=== PATIENT | male | born 1990 | race Two or more races ===

== ENCOUNTER 2022-07-25 11:31 | Inpatient (IN) ==
--- NOTE | 2022-07-25 12:15 | Emergency Department Note ---
Impression & Plan Altered mental status, Hypokalemia, Rhabdomyolysis, Abnormal LFTs ED Provider Note NAME: YADIRA [id number] DIANA AGE: 31 SEX: M : 1990 ARRIVES VIA: Ambulance INFORMANT: Patient, ED PROVIDER(S): Ankit Dang DO CHIEF COMPLAINT: Altered mental status HPI: The patient is a 31-year-old male who presented to the emergency department for an evaluation of altered mental status. The patient is currently at [facility]. Reportedly the patient has been there since Thursday. On his initial intake he was found to be somewhat combative and altered. For this reason the patient was placed in the [facility] section. He was sent to the emergency department today because they feel his sensorium has not improved. There is concern he may be having alcohol withdrawal. The patient himself admits to drinking alcohol approximately 3 times a week. He denies having any drug use. He denies having any trauma. He denies having any chest pain or difficulty breathing. The patient denies having any recent fevers or illnesses. The patient is originally from [place]. ROS: See above HPI for pertinent positives & negatives. A total of 10 systems reviewed and were otherwise negative. PAST MEDICAL HISTORY: See Below PAST SURGICAL HISTORY: See Below FAMILY HISTORY: See Below SOCIAL HISTORY: See Below HOME MEDICATIONS: See Below ALLERGIES: See Below VITALS: See Below PHYSICAL EXAMINATION: GENERAL: Patient is awake alert in no acute distress patient is resting comfortably and showing no signs of anxiety EYES: The conjunctivae are clear. The pupils are round and reactive. EARS, NOSE, MOUTH AND THROAT: The nose is without any evidence of any deformity. Mucous membranes are moist. Tongue is midline. NECK: The neck is nontender and supple. RESPIRATORY: Normal respiratory effort is noted there is no evidence of wheezing rhonchi or rales CARDIOVASCULAR: Regular rate and rhythm noted there no murmurs rubs or gallops normal S1 normal S2. GASTROINTESTINAL: The abdomen is soft. Abdomen is nontender. MUSCULOSKELETAL/EXTREMITIES: There is no evidence of gross deformity full range of motion is noted in the hips and shoulders. SKIN: There is no obvious evidence of any rash. There are no petechiae, pallor or cyanosis noted. NEUROLOGIC: Patient is awake alert and oriented x3 strength is symmetric patellar reflexes are 2+ bilaterally MEDICAL DECISION MAKING: The patient is a 31-year-old male who presented to the emergency department from [facility]. He is currently incarcerated there. The patient was received there only 2 days ago. The patient is originally from [place]. The patient was admitting to alcohol use a few days ago. He did have a slight elevation in his blood pressure as well as tachycardia. It was possible he was having some signs of withdrawal. For this reason further laboratory and radiographic studies were obtained. I discussed the patient's laboratory and radiographic studies with him. The patient was treated with IV fluids as well as Ativan. Blood pressure did improve. I discussed the patient's [facility] Nursing notes reviewed. Prior medical records reviewed Vital Signs: reviewed and remarkable for tachycardia. Differential diagnosis: Infection, hypoglycemia, electrolyte abnormalities, overdose, toxicologic, cardiac sources, intracerebral event, neurologic, trauma, as well as other pathologies. ER treatment provided: See below Diagnostics interpreted by me: ECG: EKG was obtained in the emergency department. My interpretation is sinus tachycardia at 107 bpm. There is no ectopy. There is no acute ST segment abnormalities noted. No previous tracing was available. Cardiac Monitoring: An order was placed for continuous cardiac monitoring. The monitor shows a rate of 106 bpm with sinus tachycardia. Laboratory studies: As stated above and show below. Imaging studies: See below. Radiographic imaging was reviewed by myself Consultation(s): I discussed this case with Suzanne who is [facility] Past Med/Surg History Social History Smoking Status: Current every day smoker Tobacco Type: Cigarettes Hx Alcohol Use: Yes Preferred Language: Macedonian Feels Safe at Home: Yes Allergies Allergies Allergy/AdvReac Type Severity Reaction Status Date / Time No Known Allergies Allergy Unverified 07/25/22 15:03 Results & Data (ED) Vital Signs Vital Signs - 24 hr 07/25/22 11:37 07/25/22 11:36 07/25/22 12:33 Temperature 37.7 C H Temperature Source Oral Pulse Rate 107 H 110 H Pulse Rate [Right Apical] Pulse Rhythm Regular Pulse Strength Normal Respiratory Rate 18 Respiratory Effort / Characteristics Non-Labored Respiratory Depth Normal Respiratory Pattern Blood Pressure 150/95 H Blood Pressure [Right Arm] Blood Pressure Mean 113 Blood Pressure Mean [Right Arm] Pulse Oximetry 100 100 Oxygen Delivery Method Room Air Room Air Sepsis Recent Fever Within 48 Hours No Sepsis New/Unexplained Change in Mental Status No Sepsis Action Taken by Nursing No Action Required 07/25/22 15:09 Temperature Temperature Source Pulse Rate Pulse Rate [Right Apical] 106 H Pulse Rhythm Pulse Strength Respiratory Rate 18 Respiratory Effort / Characteristics Non-Labored Spontaneous Respiratory Depth Normal Respiratory Pattern Regular Blood Pressure Blood Pressure [Right Arm] 105/82 Blood Pressure Mean Blood Pressure Mean [Right Arm] 89 Pulse Oximetry 99 Oxygen Delivery Method Room Air Sepsis Recent Fever Within 48 Hours Sepsis New/Unexplained Change in Mental Status Sepsis Action Taken by [facility] Medications Current Medication List: was personally reviewed by me Laboratory Data Attestation: I reviewed the patient's lab results. 07/25/22 11:30 07/25/22 11:30 Lab Results 07/25/22 07/25/22 07/25/22 Range/Units 11:30 11:30 12:15 WBC 9.45 (4.8-10.8) K/ul RBC 4.08 L (4.70-6.10) M/uL Hgb 13.3 L (14.0-18.0) g/dl Hct 38.5 L (42.0-52.0) % MCV 94.4 (80.0-100.0) fL MCH 32.6 (25.0-34.0) pg MCHC 34.5 (32.0-36.0) g/dL RDW Std Deviation 43.4 (36.4-46.3) fL RDW Coeff of Natalia 12.5 (11.5-14.5) % Plt Count 204 (130-400) K/uL MPV 11.4 (9.4-12.4) fL Immature Gran % (Auto) 0.3 % Neut % (Auto) 74.0 % Lymph % (Auto) 13.9 % [place] % (Auto) 11.1 % Eos % (Auto) 0.5 % Baso % (Auto) 0.2 % Neut # (Auto) 6.99 H (1.40-6.50) K/uL Lymph # (Auto) 1.31 (1.2-3.4) K/uL [place] # (Auto) 1.05 H (0.11-0.59) K/uL Eos # (Auto) 0.05 (0-0.50) K/uL Baso # (Auto) 0.02 (0-0.2) K/uL Immature Gran # (Auto) 0.03 (0.01-0.20) K/uL Sodium 138 (136-145) mmol/L Potassium 3.1 L (3.5-5.1) mmol/L Chloride 99 (98-107) mmol/L Carbon Dioxide 23 (21-32) mmol/L Anion Gap 16 H (3-11) BUN 15 (6-23) mg/dl Creatinine 0.86 (0.6-1.4) mg/dl Est Cr Clr Drug Dosing 127.0 ml/min Est GFR ( Amer) 133.0 ml/min Est GFR (Non-Af Amer) 114.7 ml/min BUN/Creatinine Ratio 17.4 (10-20) Glucose 84 (70-99(Fasting)) mg/dl Calcium 9.9 (8.6-10.3) mg/dl Magnesium 2.0 (1.7-2.4) mg/dl Total Bilirubin 1.7 H (0.2-1.0) mg/dl AST 118 H (13-39) U/L ALT 163 H (7-52) U/L Alkaline Phosphatase 73 (34-104) U/L Total Creatine Kinase 2973 H (30-223) U/L Troponin I High Sens 8.4 (0-20) pg/ml Total Protein 8.1 (6.0-8.3) gm/dl Albumin 5.1 H (3.4-5.0) gm/dl Globulin 3.0 (2.5-4.0) gm/dl Albumin/Globulin Ratio 1.7 (0.9-2) Lipase 16 (11-82) U/L Urine Color Urine Appearance (Clear) Urine pH (4.5-7.5) Ur Specific [place] (1.000-1.030) Urine Protein (Negative) Urine Glucose (UA) (Negative) Urine Ketones (Negative) Urine Blood (Negative) Urine Nitrite (Negative) Urine Bilirubin (Negative) Urine Urobilinogen (Negative) Ur Leukocyte Esterase (Negative) Urine WBC (Auto) (0-5) /hpf Urine RBC (Auto) (0-4) /hpf U Hyaline Cast (Auto) (0-5) /lpf U Epithel Cells (Auto) (0-5) /lpf Urine Bacteria (Auto) (Negative) Urine Mucus (None Prsent) Salicylates (3.0-30) mg/dl Urine Opiates Screen (Neg) Ur Methadone, Qual (Neg) Acetaminophen (10-30) ug/ml Urine Barbiturates (Neg) Ur Phencyclidine (PCP) (Neg) U Amphetamin/Meth Scrn (Neg) MDMA (Ecstasy) Screen (Neg) U Benzodiazepines Scrn (Neg) Ur Cocaine Metabolite (Neg) U Marijuana (THC) Screen (Neg) Ethyl Alcohol mg/dL < 10.0 (<10.0) mg/dl SARS-CoV-2, RNA, NAAT (NEGATIVE) 07/25/22 07/25/22 07/25/22 Range/Units 13:10 13:16 13:16 WBC (4.8-10.8) K/ul RBC (4.70-6.10) M/uL Hgb (14.0-18.0) g/dl Hct (42.0-52.0) % MCV (80.0-100.0) fL MCH (25.0-34.0) pg MCHC (32.0-36.0) g/dL RDW Std Deviation (36.4-46.3) fL RDW Coeff of Natalia (11.5-14.5) % Plt Count (130-400) K/uL MPV (9.4-12.4) fL Immature Gran % (Auto) % Neut % (Auto) % Lymph % (Auto) % [place] % (Auto) % Eos % (Auto) % Baso % (Auto) % Neut # (Auto) (1.40-6.50) K/uL Lymph # (Auto) (1.2-3.4) K/uL [place] # (Auto) (0.11-0.59) K/uL Eos # (Auto) (0-0.50) K/uL Baso # (Auto) (0-0.2) K/uL Immature Gran # (Auto) (0.01-0.20) K/uL Sodium (136-145) mmol/L Potassium (3.5-5.1) mmol/L Chloride (98-107) mmol/L Carbon Dioxide (21-32) mmol/L Anion Gap (3-11) BUN (6-23) mg/dl Creatinine (0.6-1.4) mg/dl Est Cr Clr Drug Dosing ml/min Est GFR ( Amer) ml/min Est GFR (Non-Af Amer) ml/min BUN/Creatinine Ratio (10-20) Glucose (70-99(Fasting)) mg/dl Calcium (8.6-10.3) mg/dl Magnesium (1.7-2.4) mg/dl Total Bilirubin (0.2-1.0) mg/dl AST (13-39) U/L ALT (7-52) U/L Alkaline Phosphatase (34-104) U/L Total Creatine Kinase (30-223) U/L Troponin I High Sens (0-20) pg/ml Total Protein (6.0-8.3) gm/dl Albumin (3.4-5.0) gm/dl Globulin (2.5-4.0) gm/dl Albumin/Globulin Ratio (0.9-2) Lipase (11-82) U/L Urine Color Dark Yellow Urine Appearance Clear (Clear) Urine pH 5.5 (4.5-7.5) Ur Specific [place] 1.027 (1.000-1.030) Urine Protein Trace H (Negative) Urine Glucose (UA) Negative (Negative) Urine Ketones 2+ H (Negative) Urine Blood Negative (Negative) Urine Nitrite Negative (Negative) Urine Bilirubin 1+ H (Negative) Urine Urobilinogen Negative (Negative) Ur Leukocyte Esterase Negative (Negative) Urine WBC (Auto) 1-5 (0-5) /hpf Urine RBC (Auto) 0-4 (0-4) /hpf U Hyaline Cast (Auto) 5-10 H (0-5) /lpf U Epithel Cells (Auto) 10-20 H (0-5) /lpf Urine Bacteria (Auto) Negative (Negative) Urine Mucus Present A (None Prsent) Salicylates < 3.0 L (3.0-30) mg/dl Urine Opiates Screen Neg (Neg) Ur Methadone, Qual Neg (Neg) Acetaminophen < 3 L (10-30) ug/ml Urine Barbiturates Neg (Neg) Ur Phencyclidine (PCP) Neg (Neg) U Amphetamin/Meth Scrn Neg (Neg) MDMA (Ecstasy) Screen Neg (Neg) U Benzodiazepines Scrn Neg (Neg) Ur Cocaine Metabolite Neg (Neg) U Marijuana (THC) Screen Pos H (Neg) Ethyl Alcohol mg/dL (<10.0) mg/dl SARS-CoV-2, RNA, NAAT (NEGATIVE) 07/25/22 Range/Units 15:04 WBC (4.8-10.8) K/ul RBC (4.70-6.10) M/uL Hgb (14.0-18.0) g/dl Hct (42.0-52.0) % MCV (80.0-100.0) fL MCH (25.0-34.0) pg MCHC (32.0-36.0) g/dL RDW Std Deviation (36.4-46.3) fL RDW Coeff of Natalia (11.5-14.5) % Plt Count (130-400) K/uL MPV (9.4-12.4) fL Immature Gran % (Auto) % Neut % (Auto) % Lymph % (Auto) % [place] % (Auto) % Eos % (Auto) % Baso % (Auto) % Neut # (Auto) (1.40-6.50) K/uL Lymph # (Auto) (1.2-3.4) K/uL [place] # (Auto) (0.11-0.59) K/uL Eos # (Auto) (0-0.50) K/uL Baso # (Auto) (0-0.2) K/uL Immature Gran # (Auto) (0.01-0.20) K/uL Sodium (136-145) mmol/L Potassium (3.5-5.1) mmol/L Chloride (98-107) mmol/L Carbon Dioxide (21-32) mmol/L Anion Gap (3-11) BUN (6-23) mg/dl Creatinine (0.6-1.4) mg/dl Est Cr Clr Drug Dosing ml/min Est GFR ( Amer) ml/min Est GFR (Non-Af Amer) ml/min BUN/Creatinine Ratio (10-20) Glucose (70-99(Fasting)) mg/dl Calcium (8.6-10.3) mg/dl Magnesium (1.7-2.4) mg/dl Total Bilirubin (0.2-1.0) mg/dl AST (13-39) U/L ALT (7-52) U/L Alkaline Phosphatase (34-104) U/L Total Creatine Kinase (30-223) U/L Troponin I High Sens (0-20) pg/ml Total Protein (6.0-8.3) gm/dl Albumin (3.4-5.0) gm/dl Globulin (2.5-4.0) gm/dl Albumin/Globulin Ratio (0.9-2) Lipase (11-82) U/L Urine Color Urine Appearance (Clear) Urine pH (4.5-7.5) Ur Specific [place] (1.000-1.030) Urine Protein (Negative) Urine Glucose (UA) (Negative) Urine Ketones (Negative) Urine Blood (Negative) Urine Nitrite (Negative) Urine Bilirubin (Negative) Urine Urobilinogen (Negative) Ur Leukocyte Esterase (Negative) Urine WBC (Auto) (0-5) /hpf Urine RBC (Auto) (0-4) /hpf U Hyaline Cast (Auto) (0-5) /lpf U Epithel Cells (Auto) (0-5) /lpf Urine Bacteria (Auto) (Negative) Urine Mucus (None Prsent) Salicylates (3.0-30) mg/dl Urine Opiates Screen (Neg) Ur Methadone, Qual (Neg) Acetaminophen (10-30) ug/ml Urine Barbiturates (Neg) Ur Phencyclidine (PCP) (Neg) U Amphetamin/Meth Scrn (Neg) MDMA (Ecstasy) Screen (Neg) U Benzodiazepines Scrn (Neg) Ur Cocaine Metabolite (Neg) U Marijuana (THC) Screen (Neg) Ethyl Alcohol mg/dL (<10.0) mg/dl SARS-CoV-2, RNA, NAAT NEGATIVE (NEGATIVE) Administered Medications Discontinued Medications Sodium Chloride (Nss 1000ml) 1,000 mls @ 999 mls/hr IV .[id number] ONE Stop: 07/25/22 14:49 Last Infusion: 07/25/22 16:02 Dose: 0 mls/hr Documented By: Admin: 07/25/22 14:47 Dose: 999 mls/hr Documented By: RANDY Lorazepam (Lorazepam 2 Mg/1 Ml Vial) 1 mg IV NOW STA Stop: 07/25/22 13:50 Last Admin: 07/25/22 14:05 Dose: 1 mg Documented By: RANDY Potassium Chloride (Potassium Chloride Crtab 20 Meq Tabcr) 20 meq PO NOW STA Stop: 07/25/22 13:52 Last Admin: 07/25/22 14:04 Dose: 20 meq Documented By: RANDY Thiamine HCl (Thiamine Hcl 100 Mg/Ml 2 Ml Vial) 100 mg IM NOW STA Stop: 07/25/22 13:56 Last Admin: 07/25/22 14:05 Dose: 100 mg Documented By: RANDY Imaging Data Attestation: I personally reviewed and interpreted this imaging study as follows: My Impression: 1 view chest x-ray was obtained in the emergency department. My interpretation is no free air, no definite infiltrate, final report below. Radiologist's Impression: Chest X-Ray 07/25/22 12:08 SINGLE VIEW CHEST CLINICAL HISTORY: Change in mental status. FINDINGS: An AP, portable, upright chest radiograph is obtained. No prior studies are available for comparison at the time of dictation. The cardiomediastinal silhouette is unremarkable. The lungs and pleural spaces are clear. No pneumothorax is seen. The bony thorax is grossly intact. IMPRESSION: No active disease in the chest. ACT 112: Negative or not required by law. Electronically signed by: Prince Her M.D. 07/25/2022 1:[address] 07/25/22 12:08 CT SCAN OF THE BRAIN WITHOUT IV CONTRAST CLINICAL HISTORY: Change in mental status COMPARISON STUDY: No priors. TECHNIQUE: Unenhanced axial CT scan of the brain is performed from the vertex to the skull base. A dose lowering technique was utilized adhering to the principles of ALARA. CT DOSE: 614.27 mGy.cm FINDINGS: Brain parenchyma: The brain parenchyma is normal in appearance. There is no he morrhage, mass effect, or evidence of acute territorial ischemia by CT criteria. Arriaza-white matter differentiation is preserved. No extra-axial fluid collection is seen. Ventricles, sulci, cisterns: Normal in configuration. Intracranial vasculature: The visualized intracranial vasculature at the skull base is normal in appearance. Calvarium: Unremarkable. Sinuses and mastoids: The visualized paranasal sinuses are clear. The mastoid air cells are well pneumatized. Orbits: The bony orbits are grossly intact. IMPRESSION: No acute intracranial abnormality. ACT 112: Negative or not required by law. Electronically signed by: Prince Her M.D. 07/25/2022 12:52 PM Discharge Plan Visit Data Chief Complaint: Altered Mental Status Stated Complaint: AMS, POSSIBLE ALCOHOL WITHDRAWL ED Provider: Ankit Dang Discharge Problem: Altered mental status, Hypokalemia, Rhabdomyolysis, Abnormal LFTs Patient Disposition: Being Evaluated by Hospitalist Forms Stand Alone Forms: [facility] Referrals Referrals: PCP,NO [Physician] - Altered mental status Qualifiers: Altered mental status type: unspecified Qualified Code(s): R41.82 - Altered mental status, unspecified Rhabdomyolysis Qualifiers: Rhabdomyolysis type: non-traumatic Qualified Code(s): M62.82 - Rhabdomyolysis
[2022-07-25 12:39] LABS: Basophils # (auto) 0.02 K/uL (0-0.2); Basophils % (auto) 0.2 %; Eosinophils # (auto) 0.05 K/uL (0-0.50); Eosinophils % (auto) 0.5 %; Hematocrit (blood only) 38.5 % (42.0-52.0); Hemoglobin 13.3 g/dl (14.0-18.0); Immature Granulocytes # (auto) 0.03 K/uL (0.01-0.20); Immature Granulocytes % (auto) 0.3 %; Lymphocytes # (auto) 1.31 K/uL (1.2-3.4); Lymphocytes % (auto) 13.9 %; Mean Corpuscular Hemoglobin 32.6 pg (25.0-34.0); Mean Corpuscular Hgb Conc 34.5 g/dL (32.0-36.0); Mean Corpuscular Volume 94.4 fL (80.0-100.0); Mean Platelet Volume 11.4 fL (9.4-12.4); Monocytes # (auto) 1.05 K/uL (0.11-0.59); Monocytes % (auto) 11.1 %; Neutrophils # (auto) 6.99 K/uL (1.40-6.50); Platelet Count 204 K/uL (130-400); RDW Coefficient of Variation 12.5 % (11.5-14.5); RDW Standard Deviation 43.4 fL (36.4-46.3); Red Blood Count 4.08 M/uL (4.70-6.10); White Blood Count 9.45 K/ul (4.8-10.8)
[2022-07-25 12:49] LABS: BUN Creatinine Ratio 17.4 (10-20); Calcium 9.9 mg/dl (8.6-10.3); Est GFR (Non-African American) 114.7 ml/min; Potassium 3.1 mmol/L (3.5-5.1)
[2022-07-25 12:54] LABS: Troponin I High Sensitivity 8.4 pg/ml (0-20)
--- NOTE | 2022-07-25 12:54 | CT Scan Report ---
CT SCAN OF THE BRAIN WITHOUT IV CONTRAST CLINICAL HISTORY: Change in mental status COMPARISON STUDY: No priors. TECHNIQUE: Unenhanced axial CT scan of the brain is performed from the vertex to the skull base. A d ose lowering technique was utilized adhering to the principles of ALARA. CT DOSE: 614.27 mGy.cm FINDINGS: Brain parenchyma: The brain parenchyma is normal in appearance. There is no hemorrhage, mass effect, or evidence of acute territorial ischemia by CT criteria. Arriaza-white matter differentiation is preser johnson. No extra-axial fluid collection is seen. Ventricles, sulci, cisterns: Normal in configuration. Intracranial vasculature: The visualized intracranial vasculature at the skull base is normal in appe arance. Calvarium: Unremarkable. Sinuses and mastoids: The visualized paranasal sinuses are clear. The mastoid air cells are well pneu matized. Orbits: The bony orbits are grossly intact. IMPRESSION: No acute intracranial abnormality. ACT 112: Negative or not required by law. Electronically signed by: Prince Her M.D. 07/25/2022 12:52 PM
--- NOTE | 2022-07-25 13:01 | XRay Report ---
SINGLE VIEW CHEST CLINICAL HISTORY: Change in mental status. FINDINGS: An AP, portable, upright chest radiograph is obtained. No prior studies are available for c omparison at the time of dictation. The cardiomediastinal silhouette is unremarkable. The lungs and p leural spaces are clear. No pneumothorax is seen. The bony thorax is grossly intact. IMPRESSION: No active disease in the chest. ACT 112: Negative or not required by law. Electronically signed by: Prince Her M.D. 07/25/2022 1:00 PM
[2022-07-25 13:21] LABS: Albumin Globulin Ratio 1.7 (0.9-2); Albumin Level 5.1 gm/dl (3.4-5.0); Bilirubin,Total 1.7 mg/dl (0.2-1.0); Total Protein 8.1 gm/dl (6.0-8.3)
[2022-07-25 13:40] LABS: Appearance Urine Clear (Clear); Bacteria Urine Automated Negative (Negative); Blood Urine Negative (Negative); Color Urine Dark Yellow; Glucose Urine UA Negative (Negative); Ketones Urine 2+ (Negative); Leukocyte Esterase Urine Negative (Negative); Nitrite Urine Negative (Negative); Protein Urine Trace (Negative); RBC Urine Automated 0-4 /hpf (0-4); Specific Gravity Urine 1.027 (1.000-1.030); Urobilinogen Urine Negative (Negative); pH Urine 5.5 (4.5-7.5)
[2022-07-25] MEDS ORDERED: SODIUM CHLORIDE 0.9% 1000ML 1,000 ML IV ONE (13:49)
[2022-07-25] MEDS ORDERED: LORazepam 2 MG/1 ML VIAL IV STA ×2 (13:49→16:42)
[2022-07-25] MEDS ORDERED: POTASSIUM CHLORIDE CRTAB 20 MEQ TABCR PO STA (13:51)
[2022-07-25 13:52] LABS: Bilirubin Urine 1+ (Negative)
[2022-07-25 13:55] LABS: Acetaminophen < 3 ug/ml (10-30); Salicylate < 3.0 mg/dl (3.0-30)
[2022-07-25] MEDS ORDERED: THIAMINE HCL 100 MG/ML 2 ML VIAL IM STA (13:55)
--- NOTE | 2022-07-25 14:05 | Electrocardiogram Report ---
Test Reason : Blood Pressure : / mmHG Vent. Rate : 107 BPM Atrial Rate : 107 BPM P-R Int : 116 ms QRS Dur : 104 ms QT Int : 366 ms P-R-T Axes : 046 052 050 degrees QTc Int : 488 ms Poor data quality, interpretation may be adversely affected Sinus tachycardia Otherwise normal ECG No previous ECGs available Confirmed by Ankit Weldon ([id number]) on 07/25/2022 2:05:12 PM Referred By: Confirmed By:Ankit Weldon
[2022-07-25 14:09] LABS: Mucus Urine Present (None Prsent)
[2022-07-25 14:37] LABS: Amphetamines+Metham, Urine Neg (Neg); Barbiturates, Urine Neg (Neg); Benzodiazepine, Urine Neg (Neg); Cocaine, Urine Neg (Neg); MDMA (Ecstacy), Urine Neg (Neg); Methadone, Urine Neg (Neg); Opiate, Urine Neg (Neg); Phencyclidine, Urine Neg (Neg)
--- NOTE | 2022-07-25 14:49 | History & Physical Report ---
Date of Service July 25, 2022 Assessment & Plan (1) Altered mental status: Plan: Patient is 31 y/o M without known PMH presented to ER from [facility] for AMS. At [facility] for 2 days. Yesterday noted AMS, hallucinations Suspect ETOH withdrawal. DDX: underlying pysch disorder, other medication withdrawal, possible other drug use not seen on drug screen CT head: No acute intracranial abnormality CXR: No acute infiltrate EtOH:<10 Drug screen:+ Marijuana In ER given Ativan 1 mg IV, thiamine Alcohol withdrawal protocol with gabapentin, Ativan Thiamine, folic acid, multivitamin daily CBC, CMP in a.m. (2) Rhabdomyolysis: Plan: Yesterday reported to be hitting hands and head off last CK: 2973, BUN: 15, Cr: 0.8 In ER given 1 L NSS NSS CK in a.m. (3) Hypokalemia: Plan: K: 3.1. Magnesium: 2.0 In ER given 20 mEq potassium chloride Replace and monitor (4) Abnormal LFTs: Plan: T. bili: 1.7, AST: 118, ALT: 163, alk phos: 73. Lipase WNL No baseline labs to compare Denies any abdominal pain, nontender on exam Repeat CMP in a.m. DVT Prophylaxis SCDs Full Code as per discussion with pt Is currently at [facility] Pt was seen and care coordinated with Dr Chaney. See addendum I spent a total of 79 minutes reviewing notes, outpatient records, labs, medication, coordinating, documenting and providing care for this patient excluding time spent in the performance of separately billed services. History of Present Illness Chief Complaint: AMS Primary Care Provider: Jamie Hughes DO Patient is 31 y/o M without known PMH presented to ER from [facility] for AMS. Limited history obtained from patient secondary to patient's current confusion. It is reported patient arrived at [facility] 2 days ago. It is reported yesterday he had noted confusion. He was agitated and hitting his head and hands on the last. He had noted diaphoresis. Reported he was hallucinating and reporting that his mother was lying down on the floor in his cell. Seen by psych there. There was question if patient had underlying mental health history. It is reported that patient's had called facility and reported that patient drinks alcohol. It is unclear how much patient drinks or when his last ETOH intake was. There is question if last drink was 5 days ago. He was referred to ER for further evaluation today. Currently patient with confusion and history is unreliable. He has varied answers for how much he drinks and how often. He states he drinks beer. Onetime he says he drinks 4 drinks a couple times a week another time he states he drinks more often. He reports he smokes cigarettes 1.5 packs/day. Also states smokes marijuana. He reports he last used 5 days ago. Patient reports that he is currently in an apartment with his brother and is confused to place. He states year is 2022, thinks it is August 16. He states he remembers being at [facility] yesterday but "didn't feel like himself". Currently patient reports feels well after receiving medication in ER. Patient states that he does not take routine medications, again however this is unclear. No fever reported from facility. Patient doesn't think he has had any N/V/D, SOB, CP, abdominal pain, extremity edema, urinary symptoms. He is unable to tell me if he has any other further medical problems, history of surgeries or family history. Allergies Allergy/AdvReac Type Severity Reaction Status Date / Time No Known Allergies Allergy Unverified 07/25/22 15:03 Home Medications Medication Instructions Recorded Confirmed Type chlordiazepoxide HCl 5 mg capsule 5 mg PO DAILY #3 caps 07/29/22 Rx folic acid 1 mg tablet 1 mg PO QAM #30 tabs 07/29/22 Rx multivitamin with folic acid 400 1 tab PO QAM #30 tabs 07/29/22 Rx mcg tablet (Daily-Santy (with folic acid)) thiamine HCl (vitamin B1) 100 mg 200 mg PO BID 10 days #40 tabs 07/29/22 Rx tablet Past Med/Surg History Social History Smoking Status: Current every day smoker Tobacco Type: Cigarettes Hx Alcohol Use: Yes Hx Substance Use: No (UNKNOWN) Preferred Language: Kyrgyz Communication Ability: Unable Safety And Security Manager Required: No Current Living Situation: Other Feels Safe at Home: Declines to Answer Assistive Devices: None Review of Systems Review of Systems: Unobtainable due to cognitive status Physical Exam Physical Exam: General: no acute distress currently, WDWN Head: normocephalic, atraumatic Eyes: PERRL, EOM's intact, conjunctiva non-injected, anicteric ENT: normal inspection external ears, nose, mucous membranes moist Neck: supple, trachea midline Lungs: clear, no respiratory distress, no wheezing/rhonchi/rales CV: Tachycardic, rate 106, regular rhythm no murmur, no pretibial edema Abd: normal BS, soft, non-tender Ext: no cyanosis, no calf tenderness Neuro: Alert, oriented to person. Thinks he is in his apartment with his brother currently. Knows the year is 2022, incorrect month and date, no focal deficits noted, currently is calm and cooperative. No signs of current hallucinations Skin: warm, dry Results & Data Results & Data Vital Signs (Past 12 Hours) Vital Signs Temp Pulse Resp BP Pulse Ox O2 Del Method 07/25/22 12:33 110 H 07/25/22 11:36 100 Room Air 07/25/22 11:37 37.7 C H 107 H 18 150/95 H 100 Room Air Laboratory Results Short CBC 07/25/22 Range/Units 11:30 WBC 9.45 (4.8-10.8) K/ul Hgb 13.3 L (14.0-18.0) g/dl Hct 38.5 L (42.0-52.0) % Plt Count 204 (130-400) K/uL BMP 07/25/22 11:30 Sodium 138 Potassium 3.1 L Chloride 99 Carbon Dioxide 23 BUN 15 Creatinine 0.86 Glucose 84 Calcium 9.9 Cardiac Enzymes 07/25/22 Range/Units 11:30 Total Creatine Kinase 2973 H (30-223) U/L Liver Function 07/25/22 Range/Units 11:30 Total Bilirubin 1.7 H (0.2-1.0) mg/dl AST 118 H (13-39) U/L ALT 163 H (7-52) U/L Alkaline Phosphatase 73 (34-104) U/L Albumin 5.1 H (3.4-5.0) gm/dl Urine 07/25/22 Range/Units 13:16 Urine Color Dark Yellow Urine Appearance Clear (Clear) Urine pH 5.5 (4.5-7.5) Ur Specific [place] 1.027 (1.000-1.030) Urine Protein Trace H (Negative) Urine Glucose (UA) Negative (Negative) Diagnostic Findings Chest X-Ray 07/25/22 12:08 SINGLE VIEW CHEST CLINICAL HISTORY: Change in mental status. FINDINGS: An AP, portable, upright chest radiograph is obtained. No prior studies are available for comparison at the time of dictation. The cardiomediastinal silhouette is unremarkable. The lungs and pleural spaces are clear. No pneumothorax is seen. The bony thorax is grossly intact. IMPRESSION: No active disease in the chest. ACT 112: Negative or not required by law. Electronically signed by: Prince Her M.D. 07/25/2022 1:[address] 07/25/22 12:08 CT SCAN OF THE BRAIN WITHOUT IV CONTRAST CLINICAL HISTORY: Change in mental status COMPARISON STUDY: No priors. TECHNIQUE: Unenhanced axial CT scan of the brain is performed from the vertex to the skull base. A dose lowering technique was utilized adhering to the principles of ALARA. CT DOSE: 614.27 mGy.cm FINDINGS: Brain parenchyma: The brain parenchyma is normal in appearance. There is no hemorrhage, mass effect, or evidence of acute territorial ischemia by CT criteria. Arriaza-white matter differentiation is preserved. No extra-axial fluid collection is seen. Ventricles, sulci, cisterns: Normal in configuration. Intracranial vasculature: The visualized intracranial vasculature at the skull base is normal in appearance. Calvarium: Unremarkable. Sinuses and mastoids: The visualized paranasal sinuses are clear. The mastoid air cells are well pneumatized. Orbits: The bony orbits are grossly intact. IMPRESSION: No acute intracranial abnormality. ACT 112: Negative or not required by law. Electronically signed by: Prince Her M.D. 07/25/2022 12:52 PM ECG Rate (beats per minute): 107 Rhythm: sinus tachycardia Additional Comments: poor tracing Supervising Physician Co-Signing Physician Notes Pt was seen and examined. Agreed with Estee BARR exam, assessment and plan. 31 y/o M was brought from [facility] facility for AMS. I saw patient yesterday at [facility], where he was found to be confused, [facility] It was reported that patient's called the facility and reported that patient drinks alcohol. It is unclear how much patient drinks or when his last ETOH intake. Today his mental status worsening. He thought he was at his brother facility where he was having a conversation. Denies any chest pain, palpitation, dizziness and SOB. Lab on admission showed elevated liver enzymes, elevated CPK and electrolytes abnormality. CT head showed no acute intracranial abnormality. Will start on gabapentin and Ativan for alcohol protocol treatment. Will repeat LFT and K level. Consider to start librium if symptoms worsening. Continue monitor closely. MD Ritu (1) Altered mental status Altered mental status type: unspecified Qualified Code(s): R41.82 - Altered mental status, unspecified (2) Rhabdomyolysis Rhabdomyolysis type: non-traumatic Qualified Code(s): M62.82 - Rhabdomyolysis
[2022-07-25] MEDS ORDERED: GABAPENTIN 600 MG TAB PO ONE (18:09)
[2022-07-25] MEDS ORDERED: GABAPENTIN 1200MG ALCOHOL WITHDRAWAL LOAD PO STA (18:09)
[2022-07-25] MEDS ORDERED: LORazepam 2 MG/1 ML VIAL IV PRN (18:09)
[2022-07-25] MEDS ORDERED: POTASSIUM CHLORIDE CRTAB 20 MEQ TABCR PO ONE (18:09)
[2022-07-25] MEDS ORDERED: POLYETHYLENE (MIRALAX) 17 GM PACK PO PRN (18:09)
[2022-07-25] MEDS ORDERED: ONDANSETRON INJ 2 MG/ML 2 ML VIAL IV PRN (18:09)
[2022-07-25] MEDS ORDERED: Ativan IV Alcohol Withdrawal--Active Protocol IV PRN (18:09)
[2022-07-25] MEDS ORDERED: LORazepam 2 MG/1 ML VIAL ONE (18:23)
[2022-07-25] MEDS: SODIUM CHLORIDE 0.9% 1000ML 1,000 ML IV SCH (18:49)
[2022-07-25] MEDS: LORazepam 2 MG/1 ML VIAL IV PRN ×5 (19:24→23:36)
[2022-07-25] MEDS: POTASSIUM CHLORIDE / WTR 10 MEQ/100 ML PLCT IV SCH ×3 (21:17→23:06)
[2022-07-26] MEDS: POTASSIUM CHLORIDE / WTR 10 MEQ/100 ML PLCT IV SCH (00:17)
[2022-07-26] MEDS: GABAPENTIN 600 MG TAB PO SCH ×4 (00:21→19:47)
[2022-07-26] MEDS: LORazepam 2 MG/1 ML VIAL IV PRN ×8 (00:37→19:46)
[2022-07-26] MEDS: SODIUM CHLORIDE 0.9% 1000ML 1,000 ML IV SCH (01:22)
[2022-07-26 06:45] LABS: Hematocrit (blood only) 35.5 % (42.0-52.0); Hemoglobin 11.9 g/dl (14.0-18.0); Mean Corpuscular Hemoglobin 33.1 pg (25.0-34.0); Mean Corpuscular Hgb Conc 33.5 g/dL (32.0-36.0); Mean Corpuscular Volume 98.6 fL (80.0-100.0); Mean Platelet Volume 10.8 fL (9.4-12.4); Platelet Count 165 K/uL (130-400); RDW Coefficient of Variation 12.6 % (11.5-14.5); RDW Standard Deviation 45.7 fL (36.4-46.3); White Blood Count 6.04 K/ul (4.8-10.8)
[2022-07-26 07:00] LABS: Alanine Aminotransferase 106 U/L (7-52); Albumin Globulin Ratio 1.7 (0.9-2); Albumin Level 3.8 gm/dl (3.4-5.0); Alkaline Phosphatase 54 U/L (34-104); Anion Gap 8 (3-11); Aspartate Aminotransferase 67 U/L (13-39); BUN Creatinine Ratio 12.1 (10-20); Bilirubin,Total 1.2 mg/dl (0.2-1.0); Blood Urea Nitrogen 7 mg/dl (6-23); Calcium 8.2 mg/dl (8.6-10.3); Carbon Dioxide 24 mmol/L (21-32); Chloride 107 mmol/L (98-107); Creatine Kinase 1286 U/L (30-223); Est GFR (African American) > 150.0 ml/min; Est GFR (Non-African American) 134.9 ml/min; Globulin 2.3 gm/dl (2.5-4.0); Glucose 67 mg/dl (70-99(Fasting)); Potassium 3.6 mmol/L (3.5-5.1); Sodium 139 mmol/L (136-145); Total Protein 6.1 gm/dl (6.0-8.3)
--- NOTE | 2022-07-26 08:16 | Hospitalist Progress Note ---
Date of Service July 26, 2022 Assessment & Plan (1) Altered mental status: Plan: Patient is 31 y/o M without known PMH presented to ER from [facility] for AMS. At [facility] for 2 days. Noted AMS, hallucinations Suspect ETOH withdrawal. DDX: underlying pysch disorder, other medication withdrawal, possible other drug use not seen on drug screen CT head: No acute intracranial abnormality CXR: No acute infiltrate EtOH:<10 Drug screen:+ Marijuana In ER given Ativan and thiamine Alcohol withdrawal protocol with gabapentin, Ativan Thiamine, folic acid, multivitamin daily Patient was unable to take p.o. gabapentin He has been combative, in restraints, receiving multiple doses of Ativan Discussed with patient's RN, and pot room supervisor, plan to transfer to ICU for further closer monitoring and care Monitor CBC, CMP Further care per ICU (2) Rhabdomyolysis: Plan: Reported to be hitting hands and head off last CK: 2973, BUN: 15, Cr: 0.8 In ER given 1 L NSS NSS CK trended down (3) Hypokalemia: Plan: K: 3.1. Magnesium: 2.0 Replace and monitor (4) Abnormal LFTs: Plan: T. bili: 1.7, AST: 118, ALT: 163, alk phos: 73. Lipase WNL No baseline labs to compare Denies any abdominal pain, nontender on exam AST, ALT trended down Cont. to monitor CMP in a.m. DVT Prophylaxis SCDs Full Code as per discussion with pt Is currently at [facility] Admission and Anticipated Discharge Date Admission Date: July 25, 2022 Subjective Pt seen in follow up of altered mental status, etoh withdrawal, rhabdo Laying in bed, drowsy - received multiple doses of ativan, not answering appropriately He is in restraints Per RN pt has been combative , receiving ativan frequently, not able to take PO Patient is not answering questions appropriately, able to obtain full review of system Discussed with pot room supervisor, plan to transfer to ICU for closer monitoring Review of Systems Review of Systems: All systems reviewed & are unremarkable except as noted in Subjective Physical Exam 2 Physical Exam: General: WD/WN young M in no acute distress however in restraints, drowsy Head: normocephalic, atraumatic Eyes: PERRL, EOM's intact, conjunctiva non-injected, anicteric ENT: normal inspection external ears, nose, mucous membranes moist Neck: supple Lungs: clear, no respiratory distress, no wheezing/rhonchi/rales CV: regular rhythm no murmur, no pretibial edema Abd: normal BS, soft, non-tender Ext: no LE edema, moves extremities w/o difficulty Neuro: Drowsy but awake, moving all extremities, in restraints, not able to answer all questions appropriately Skin: warm, dry Results & Data Results & Data Vital Signs (Past 12 Hours) Vital Signs Temp Pulse Pulse Resp BP BP BP 07/26/22 07:38 36.5 C 77 18 123/82 07/26/22 06:27 36.5 C 79 18 135/87 07/26/22 05:29 36.5 C 91 H 18 103/60 07/26/22 04:35 36.4 C L 88 18 132/75 07/26/22 03:31 36.3 C L 102 H 20 139/76 07/26/22 02:37 36.3 C L 96 H 16 108/55 L 07/26/22 01:34 36.3 C L 103 H 18 103/58 L 07/26/22 00:43 87 07/25/22 23:33 36.5 C 80 18 127/56 L 07/26/22 00:25 36.3 C L 101 H 22 145/74 H 07/25/22 22:33 36.5 C 132 H 22 116/82 07/25/22 21:33 36.5 C 88 18 123/77 07/25/22 20:33 36.4 C L 91 H 18 124/79 Pulse Ox O2 Del Method 07/26/22 07:38 100 Room Air 07/26/22 06:27 98 Room Air 07/26/22 05:29 100 Room Air 07/26/22 04:35 100 Room Air 07/26/22 03:31 96 Room Air 07/26/22 02:37 99 Room Air 07/26/22 01:34 99 Room Air 07/26/22 00:43 07/25/22 23:33 95 Room Air 07/26/22 00:25 99 Room Air 07/25/22 22:33 94 Room Air 07/25/22 21:33 99 Room Air 07/25/22 20:33 97 Room Air Laboratory Results 07/26/22 07/26/22 07/25/22 Range/Units 06:19 06:19 Unknown WBC 6.04 (4.8-10.8) K/ul RBC 3.60 L (4.70-6.10) M/uL Hgb 11.9 L (14.0-18.0) g/dl Hct 35.5 L (42.0-52.0) % MCV 98.6 (80.0-100.0) fL MCH 33.1 (25.0-34.0) pg MCHC 33.5 (32.0-36.0) g/dL RDW Std Deviation 45.7 (36.4-46.3) fL RDW Coeff of Natalia 12.6 (11.5-14.5) % Plt Count 165 (130-400) K/uL MPV 10.8 (9.4-12.4) fL Immature Gran % (Auto) % Neut % (Auto) % Lymph % (Auto) % [place] % (Auto) % Eos % (Auto) % Baso % (Auto) % Neut # (Auto) (1.40-6.50) K/uL Lymph # (Auto) (1.2-3.4) K/uL [place] # (Auto) (0.11-0.59) K/uL Eos # (Auto) (0-0.50) K/uL Baso # (Auto) (0-0.2) K/uL Immature Gran # (Auto) (0.01-0.20) K/uL Sodium 139 (136-145) mmol/L Potassium 3.6 (3.5-5.1) mmol/L Chloride 107 (98-107) mmol/L Carbon Dioxide 24 (21-32) mmol/L Anion Gap 8 (3-11) BUN 7 (6-23) mg/dl Creatinine 0.58 L (0.6-1.4) mg/dl Est Cr Clr Drug Dosing 189.0 ml/min Est GFR ( Amer) > 150.0 ml/min Est GFR (Non-Af Amer) 134.9 ml/min BUN/Creatinine Ratio 12.1 (10-20) Glucose 67 L (70-99(Fasting)) mg/dl Calcium 8.2 L (8.6-10.3) mg/dl Magnesium (1.7-2.4) mg/dl Total Bilirubin 1.2 H (0.2-1.0) mg/dl AST 67 H (13-39) U/L ALT 106 H (7-52) U/L Alkaline Phosphatase 54 (34-104) U/L Total Creatine Kinase 1286 H (30-223) U/L Troponin I High Sens (0-20) pg/ml Total Protein 6.1 D (6.0-8.3) gm/dl Albumin 3.8 (3.4-5.0) gm/dl Globulin 2.3 L (2.5-4.0) gm/dl Albumin/Globulin Ratio 1.7 (0.9-2) Lipase (11-82) U/L Urine Color Urine Appearance (Clear) Urine pH (4.5-7.5) Ur Specific [place] (1.000-1.030) Urine Protein (Negative) Urine Glucose (UA) (Negative) Urine Ketones (Negative) Urine Blood (Negative) Urine Nitrite (Negative) Urine Bilirubin (Negative) Urine Urobilinogen (Negative) Ur Leukocyte Esterase (Negative) Urine WBC (Auto) (0-5) /hpf Urine RBC (Auto) (0-4) /hpf U Hyaline Cast (Auto) (0-5) /lpf U Epithel Cells (Auto) (0-5) /lpf Urine Bacteria (Auto) (Negative) Urine Mucus (None Prsent) Nasal Screen MRSA (PCR) Negative (Negative) Salicylates (3.0-30) mg/dl Urine Opiates Screen (Neg) Ur Methadone, Qual (Neg) Acetaminophen (10-30) ug/ml Urine Barbiturates (Neg) Ur Phencyclidine (PCP) (Neg) U Amphetamin/Meth Scrn (Neg) MDMA (Ecstasy) Screen (Neg) U Benzodiazepines Scrn (Neg) Ur Cocaine Metabolite (Neg) U Marijuana (THC) Screen (Neg) U Marijuana THC Carboxy Drug Screen Comment Ethyl Alcohol mg/dL (<10.0) mg/dl SARS-CoV-2, RNA, NAAT (NEGATIVE) 07/25/22 07/25/22 07/25/22 Range/Units 15:04 13:16 13:16 WBC (4.8-10.8) K/ul RBC (4.70-6.10) M/uL Hgb (14.0-18.0) g/dl Hct (42.0-52.0) % MCV (80.0-100.0) fL MCH (25.0-34.0) pg MCHC (32.0-36.0) g/dL RDW Std Deviation (36.4-46.3) fL RDW Coeff of Natalia (11.5-14.5) % Plt Count (130-400) K/uL MPV (9.4-12.4) fL Immature Gran % (Auto) % Neut % (Auto) % Lymph % (Auto) % [place] % (Auto) % Eos % (Auto) % Baso % (Auto) % Neut # (Auto) (1.40-6.50) K/uL Lymph # (Auto) (1.2-3.4) K/uL [place] # (Auto) (0.11-0.59) K/uL Eos # (Auto) (0-0.50) K/uL Baso # (Auto) (0-0.2) K/uL Immature Gran # (Auto) (0.01-0.20) K/uL Sodium (136-145) mmol/L Potassium (3.5-5.1) mmol/L Chloride (98-107) mmol/L Carbon Dioxide (21-32) mmol/L Anion Gap (3-11) BUN (6-23) mg/dl Creatinine (0.6-1.4) mg/dl Est Cr Clr Drug Dosing ml/min Est GFR ( Amer) ml/min Est GFR (Non-Af Amer) ml/min BUN/Creatinine Ratio (10-20) Glucose (70-99(Fasting)) mg/dl Calcium (8.6-10.3) mg/dl Magnesium (1.7-2.4) mg/dl Total Bilirubin (0.2-1.0) mg/dl AST (13-39) U/L ALT (7-52) U/L Alkaline Phosphatase (34-104) U/L Total Creatine Kinase (30-223) U/L Troponin I High Sens (0-20) pg/ml Total Protein (6.0-8.3) gm/dl Albumin (3.4-5.0) gm/dl Globulin (2.5-4.0) gm/dl Albumin/Globulin Ratio (0.9-2) Lipase (11-82) U/L Urine Color Urine Appearance (Clear) Urine pH (4.5-7.5) Ur Specific [place] (1.000-1.030) Urine Protein (Negative) Urine Glucose (UA) (Negative) Urine Ketones (Negative) Urine Blood (Negative) Urine Nitrite (Negative) Urine Bilirubin (Negative) Urine Urobilinogen (Negative) Ur Leukocyte Esterase (Negative) Urine WBC (Auto) (0-5) /hpf Urine RBC (Auto) (0-4) /hpf U Hyaline Cast (Auto) (0-5) /lpf U Epithel Cells (Auto) (0-5) /lpf Urine Bacteria (Auto) (Negative) Urine Mucus (None Prsent) Nasal Screen MRSA (PCR) (Negative) Salicylates (3.0-30) mg/dl Urine Opiates Screen Neg (Neg) Ur Methadone, Qual Neg (Neg) Acetaminophen (10-30) ug/ml Urine Barbiturates Neg (Neg) Ur Phencyclidine (PCP) Neg (Neg) U Amphetamin/Meth Scrn Neg (Neg) MDMA (Ecstasy) Screen Neg (Neg) U Benzodiazepines Scrn Neg (Neg) Ur Cocaine Metabolite Neg (Neg) U Marijuana (THC) Screen Pos H (Neg) U Marijuana THC Carboxy Pending Drug Screen Comment Pending Ethyl Alcohol mg/dL (<10.0) mg/dl SARS-CoV-2, RNA, NAAT NEGATIVE (NEGATIVE) 07/25/22 07/25/22 07/25/22 Range/Units 13:16 13:10 12:15 WBC (4.8-10.8) K/ul RBC (4.70-6.10) M/uL Hgb (14.0-18.0) g/dl Hct (42.0-52.0) % MCV (80.0-100.0) fL MCH (25.0-34.0) pg MCHC (32.0-36.0) g/dL RDW Std Deviation (36.4-46.3) fL RDW Coeff of Natalia (11.5-14.5) % Plt Count (130-400) K/uL MPV (9.4-12.4) fL Immature Gran % (Auto) % Neut % (Auto) % Lymph % (Auto) % [place] % (Auto) % Eos % (Auto) % Baso % (Auto) % Neut # (Auto) (1.40-6.50) K/uL Lymph # (Auto) (1.2-3.4) K/uL [place] # (Auto) (0.11-0.59) K/uL Eos # (Auto) (0-0.50) K/uL Baso # (Auto) (0-0.2) K/uL Immature Gran # (Auto) (0.01-0.20) K/uL Sodium (136-145) mmol/L Potassium (3.5-5.1) mmol/L Chloride (98-107) mmol/L Carbon Dioxide (21-32) mmol/L Anion Gap (3-11) BUN (6-23) mg/dl Creatinine (0.6-1.4) mg/dl Est Cr Clr Drug Dosing ml/min Est GFR ( Amer) ml/min Est GFR (Non-Af Amer) ml/min BUN/Creatinine Ratio (10-20) Glucose (70-99(Fasting)) mg/dl Calcium (8.6-10.3) mg/dl Magnesium (1.7-2.4) mg/dl Total Bilirubin (0.2-1.0) mg/dl AST (13-39) U/L ALT (7-52) U/L Alkaline Phosphatase (34-104) U/L Total Creatine Kinase (30-223) U/L Troponin I High Sens (0-20) pg/ml Total Protein (6.0-8.3) gm/dl Albumin (3.4-5.0) gm/dl Globulin (2.5-4.0) gm/dl Albumin/Globulin Ratio (0.9-2) Lipase (11-82) U/L Urine Color Dark Yellow Urine Appearance Clear (Clear) Urine pH 5.5 (4.5-7.5) Ur Specific [place] 1.027 (1.000-1.030) Urine Protein Trace H (Negative) Urine Glucose (UA) Negative (Negative) Urine Ketones 2+ H (Negative) Urine Blood Negative (Negative) Urine Nitrite Negative (Negative) Urine Bilirubin 1+ H (Negative) Urine Urobilinogen Negative (Negative) Ur Leukocyte Esterase Negative (Negative) Urine WBC (Auto) 1-5 (0-5) /hpf Urine RBC (Auto) 0-4 (0-4) /hpf U Hyaline Cast (Auto) 5-10 H (0-5) /lpf U Epithel Cells (Auto) 10-20 H (0-5) /lpf Urine Bacteria (Auto) Negative (Negative) Urine Mucus Present A (None Prsent) Nasal Screen MRSA (PCR) (Negative) Salicylates < 3.0 L (3.0-30) mg/dl Urine Opiates Screen (Neg) Ur Methadone, Qual (Neg) Acetaminophen < 3 L (10-30) ug/ml Urine Barbiturates (Neg) Ur Phencyclidine (PCP) (Neg) U Amphetamin/Meth Scrn (Neg) MDMA (Ecstasy) Screen (Neg) U Benzodiazepines Scrn (Neg) Ur Cocaine Metabolite (Neg) U Marijuana (THC) Screen (Neg) U Marijuana THC Carboxy Drug Screen Comment Ethyl Alcohol mg/dL < 10.0 (<10.0) mg/dl SARS-CoV-2, RNA, NAAT (NEGATIVE) 07/25/22 07/25/22 Range/Units 11:30 11:30 WBC 9.45 (4.8-10.8) K/ul RBC 4.08 L (4.70-6.10) M/uL Hgb 13.3 L (14.0-18.0) g/dl Hct 38.5 L (42.0-52.0) % MCV 94.4 (80.0-100.0) fL MCH 32.6 (25.0-34.0) pg MCHC 34.5 (32.0-36.0) g/dL RDW Std Deviation 43.4 (36.4-46.3) fL RDW Coeff of Natalia 12.5 (11.5-14.5) % Plt Count 204 (130-400) K/uL MPV 11.4 (9.4-12.4) fL Immature Gran % (Auto) 0.3 % Neut % (Auto) 74.0 % Lymph % (Auto) 13.9 % [place] % (Auto) 11.1 % Eos % (Auto) 0.5 % Baso % (Auto) 0.2 % Neut # (Auto) 6.99 H (1.40-6.50) K/uL Lymph # (Auto) 1.31 (1.2-3.4) K/uL [place] # (Auto) 1.05 H (0.11-0.59) K/uL Eos # (Auto) 0.05 (0-0.50) K/uL Baso # (Auto) 0.02 (0-0.2) K/uL Immature Gran # (Auto) 0.03 (0.01-0.20) K/uL Sodium 138 (136-145) mmol/L Potassium 3.1 L (3.5-5.1) mmol/L Chloride 99 (98-107) mmol/L Carbon Dioxide 23 (21-32) mmol/L Anion Gap 16 H (3-11) BUN 15 (6-23) mg/dl Creatinine 0.86 (0.6-1.4) mg/dl Est Cr Clr Drug Dosing 127.0 ml/min Est GFR ( Amer) 133.0 ml/min Est GFR (Non-Af Amer) 114.7 ml/min BUN/Creatinine Ratio 17.4 (10-20) Glucose 84 (70-99(Fasting)) mg/dl Calcium 9.9 (8.6-10.3) mg/dl Magnesium 2.0 (1.7-2.4) mg/dl Total Bilirubin 1.7 H (0.2-1.0) mg/dl AST 118 H (13-39) U/L ALT 163 H (7-52) U/L Alkaline Phosphatase 73 (34-104) U/L Total Creatine Kinase 2973 H (30-223) U/L Troponin I High Sens 8.4 (0-20) pg/ml Total Protein 8.1 (6.0-8.3) gm/dl Albumin 5.1 H (3.4-5.0) gm/dl Globulin 3.0 (2.5-4.0) gm/dl Albumin/Globulin Ratio 1.7 (0.9-2) Lipase 16 (11-82) U/L Urine Color Urine Appearance (Clear) Urine pH (4.5-7.5) Ur Specific [place] (1.000-1.030) Urine Protein (Negative) Urine Glucose (UA) (Negative) Urine Ketones (Negative) Urine Blood (Negative) Urine Nitrite (Negative) Urine Bilirubin (Negative) Urine Urobilinogen (Negative) Ur Leukocyte Esterase (Negative) Urine WBC (Auto) (0-5) /hpf Urine RBC (Auto) (0-4) /hpf U Hyaline Cast (Auto) (0-5) /lpf U Epithel Cells (Auto) (0-5) /lpf Urine Bacteria (Auto) (Negative) Urine Mucus (None Prsent) Nasal Screen MRSA (PCR) (Negative) Salicylates (3.0-30) mg/dl Urine Opiates Screen (Neg) Ur Methadone, Qual (Neg) Acetaminophen (10-30) ug/ml Urine Barbiturates (Neg) Ur Phencyclidine (PCP) (Neg) U Amphetamin/Meth Scrn (Neg) MDMA (Ecstasy) Screen (Neg) U Benzodiazepines Scrn (Neg) Ur Cocaine Metabolite (Neg) U Marijuana (THC) Screen (Neg) U Marijuana THC Carboxy Drug Screen Comment Ethyl Alcohol mg/dL (<10.0) mg/dl SARS-CoV-2, RNA, NAAT (NEGATIVE) Medications Administered Current Inpatient Medications Acetaminophen (Acetaminophen 325 Mg Tab) 650 mg PO Q4H PRN PRN Reason: Pain or Fever Stop: 08/24/22 18:08 Folic Acid (Folic Acid 1 Mg Tab) 1 mg PO QAM [facility] Stop: 08/25/22 08:59 Last Admin: 07/26/22 08:53 Dose: Not Given Gabapentin (Gabapentin 600 Mg Tab) 600 mg PO Q24H [facility] Stop: 07/29/22 06:01 Gabapentin (Gabapentin 600 Mg Tab) 600 mg PO Q12H [facility] Stop: 07/28/22 06:01 Gabapentin (Gabapentin 600 Mg Tab) 600 mg PO Q8H [facility] Stop: 07/27/22 06:01 Sodium Chloride (Nss 1000ml) 1,000 mls @ 125 mls/hr IV .Q8H [facility] Stop: 07/26/22 10:08 Last Infusion: 07/26/22 06:37 Dose: 0 mls/hr Lorazepam (Lorazepam 2 Mg/1 Ml Vial) 3 mg IV ONCE PRN; Protocol PRN Reason: EtOH Withdrawal AWSS Score 10+ Lorazepam (Lorazepam 2 Mg/1 Ml Vial) 2 mg IV UD PRN; Protocol PRN Reason: EtOH Withdrawal AWSS Score 8,9 Stop: 08/24/22 18:08 Last Admin: 07/26/22 05:32 Dose: 2 mg Lorazepam (Lorazepam 2 Mg/1 Ml Vial) 1 mg IV UD PRN; Protocol PRN Reason: EtOH Withdrawal AWSS Score 6,7 Stop: 08/24/22 18:08 Last Admin: 07/26/22 06:31 Dose: 1 mg Multivitamins (Multivitamin Tab) 1 tab PO [facility] Stop: 08/25/22 08:59 Last Admin: 07/26/22 08:53 Dose: Not Given Ondansetron HCl (Ondansetron Inj 2 Mg/Ml 2 Ml Vial) 4 mg IV Q6H PRN PRN Reason: Nausea Stop: 08/24/22 18:08 Polyethylene Glycol (Polyethylene (Miralax) 17 Gm Pack) 17 gm PO DAILY PRN PRN Reason: Constipation Stop: 08/24/22 18:08 Thiamine HCl (Thiamine Hcl 100 Mg Tab) [facility] [place] Stop: 08/25/22 08:59 Last Admin: 07/26/22 08:53 Dose: Not Given (1) Altered mental status Altered mental status type: unspecified Qualified Code(s): R41.82 - Altered mental status, unspecified (2) Rhabdomyolysis Rhabdomyolysis type: non-traumatic Qualified Code(s): M62.82 - Rhabdomyolysis
[2022-07-26] MEDS: MULTIVITAMIN TAB PO SCH (08:53)
[2022-07-26] MEDS: FOLIC ACID 1 MG TAB PO SCH (08:53)
[2022-07-26] MEDS ORDERED: THIAMINE HCL 100 MG TAB PO SCH (09:00)
--- NOTE | 2022-07-26 09:51 | Critical Care Consultation ---
Date of Consultation July 26, 2022 Assessment & Plan (1) Altered mental status: (2) Rhabdomyolysis: (3) Alcohol withdrawal: Plan Impression: 31-year-old male with acute alcohol withdrawal resulting in altered mental status. He required large amounts of benzodiazepines overnight and has been transferred to the ICU for closer monitoring. Recommendations: 1. Acute alcohol withdrawal: Continue benzodiazepines and gabapentin. Can escalate to phenobarb or Precedex if needed but currently appears to be doing reasonably well. Continue high-dose thiamine and folate replacement. Will provide glucose as well. 2. Elevated CPK: Downtrending currently. Continue aggressive IV hydration. No indication for continued monitoring of labs. His kidney function is normal. 3. Mild anemia. No evidence of acute blood loss. Continue to follow currently. No indication for transfusion. 4. Increased AST and ALT now decreasing. No indication for continuing to follow. Exam is benign. 5. DVT prophylaxis will be initiated. We will observe in the ICU overnight. Depending on how he does, may be able to transfer back to the floor within the next 24 hours if he does okay. Discussed with bedside ICU critical care nurse. History of Present Illness Attending Physician: Jm Michelle MD History of Present Illness Asked by hospitalist to assist in evaluation management this patient with presumed alcohol withdrawal requiring large amounts of benzodiazepine. History is obtained from review electronic medical record as well as discussion with the patient and the hospitalist. Patient is a 31-year-old male who is a detainee. He reports drinking alcohol about 3-4 times a week usually a sixpack at a time. He smokes cigarettes at the rate of 1/2 pack/day. He has not had prior alcohol withdrawal issues. He was brought to the emergency room yesterday due to altered mental status. He was agitated. He was seen by psychiatry. There was a questionable underlying mental health disorder. He was admitted with a presumptive diagnosis of alcohol withdrawal. He was put on the floor and treated with benzodiazepines. He required over 20 mg of Ativan overnight and due to this large amount was transferred to the ICU for closer monitoring. Currently the patient is awake alert and appropriate. He is oriented to person place and time. He is not exhibiting any visual or auditory hallucinations although these reportedly were present previously. He demonstrates no tremors. He denies prior history of alcohol withdrawal issues or seizure. Allergies Allergy/AdvReac Type Severity Reaction Status Date / Time No Known Allergies Allergy Unverified 07/25/22 15:03 Patient History Social History Smoking Status: Current every day smoker Tobacco Type: Cigarettes Hx Alcohol Use: Yes Hx Substance Use: No (UNKNOWN) Preferred Language: [place] Communication Ability: Unable Tactical Debriefer Officer Required: No Current Living Situation: Other Feels Safe at Home: Declines to Answer Assistive Devices: None Review of Systems Review of Systems: All systems reviewed & are unremarkable except as noted in Subjective Physical Exam Constitutional: WD/WN, vitals as above Neck: trachea midline, no thyromegaly Respiratory: normal respiratory effort, lungs clear to auscultation Cardiovascular: RRR, no murmur, no edema Gastrointestinal (Abdomen): normal bowel sounds, soft, nontender, no hepatosplenomegaly Musculoskeletal: Extremities: extremities normal to inspection Skin: no rashes, warm and dry Neurologic: Nonfocal exam Lymphatic: no cervical lymphadenopathy Results & Data Results & Data Vital Signs (Past 12 Hours) Vital Signs Temp Pulse Pulse Resp BP BP BP 07/26/22 09:18 07/26/22 07:38 36.5 C 77 18 123/82 07/26/22 06:27 36.5 C 79 18 135/87 07/26/22 05:29 36.5 C 91 H 18 103/60 07/26/22 04:35 36.4 C L 88 18 132/75 07/26/22 03:31 36.3 C L 102 H 20 139/76 07/26/22 02:37 36.3 C L 96 H 16 108/55 L 07/26/22 01:34 36.3 C L 103 H 18 103/58 L 07/26/22 00:43 87 07/25/22 23:33 36.5 C 80 18 127/56 L 07/26/22 00:25 36.3 C L 101 H 22 145/74 H 07/25/22 22:33 36.5 C 132 H 22 116/82 Pulse Ox O2 Del Method 07/26/22 09:18 Room Air 07/26/22 07:38 100 Room Air 07/26/22 06:27 98 Room Air 07/26/22 05:29 100 Room Air 07/26/22 04:35 100 Room Air 07/26/22 03:31 96 Room Air 07/26/22 02:37 99 Room Air 07/26/22 01:34 99 Room Air 07/26/22 00:43 07/25/22 23:33 95 Room Air 07/26/22 00:25 99 Room Air 07/25/22 22:33 94 Room Air Critical Care Results & Data Vital Signs (Past 12 Hours) Vital Signs Temp Pulse Pulse Resp BP BP BP 07/26/22 09:18 07/26/22 07:38 36.5 C 77 18 123/82 07/26/22 06:27 36.5 C 79 18 135/87 07/26/22 05:29 36.5 C 91 H 18 103/60 07/26/22 04:35 36.4 C L 88 18 132/75 07/26/22 03:31 36.3 C L 102 H 20 139/76 07/26/22 02:37 36.3 C L 96 H 16 108/55 L 07/26/22 01:34 36.3 C L 103 H 18 103/58 L 07/26/22 00:43 87 07/25/22 23:33 36.5 C 80 18 127/56 L 07/26/22 00:25 36.3 C L 101 H 22 145/74 H 07/25/22 22:33 36.5 C 132 H 22 116/82 Pulse Ox O2 Del Method 07/26/22 09:18 Room Air 07/26/22 07:38 100 Room Air 07/26/22 06:27 98 Room Air 07/26/22 05:29 100 Room Air 07/26/22 04:35 100 Room Air 07/26/22 03:31 96 Room Air 07/26/22 02:37 99 Room Air 07/26/22 01:34 99 Room Air 07/26/22 00:43 07/25/22 23:33 95 Room Air 07/26/22 00:25 99 Room Air 07/25/22 22:33 94 Room Air Lab & Micro Results (Past 24 Hours) RBC 3.60 M/uL (4.70-6.10) L 07/26/22 WBC 6.04 K/ul (4.8-10.8) 07/26/22 Hgb 11.9 g/dl (14.0-18.0) L 07/26/22 Hct 35.5 % (42.0-52.0) L 07/26/22 MCV 98.6 fL (80.0-100.0) 07/26/22 MCH 33.1 pg (25.0-34.0) 07/26/22 MCHC 33.5 g/dL (32.0-36.0) 07/26/22 RDW Standard Deviation 45.7 fL (36.4-46.3) 07/26/22 RDW Coefficient of Variation 12.6 % (11.5-14.5) 07/26/22 Plt Count 165 K/uL (130-400) 07/26/22 MPV 10.8 fL (9.4-12.4) 07/26/22 Neutrophils (%) (Auto) 74.0 % 07/25/22 Lymphocytes (%) (Auto) 13.9 % 07/25/22 Monocytes # (Auto) 1.05 K/uL (0.11-0.59) H 07/25/22 Eosinophils # (Auto) 0.05 K/uL (0-0.50) 07/25/22 Immature Granulocyte % (Auto) 0.3 % 07/25/22 Neutrophils # (Auto) 6.99 K/uL (1.40-6.50) H 07/25/22 Lymphocytes # (Auto) 1.31 K/uL (1.2-3.4) 07/25/22 Monocytes # (Auto) 1.05 K/uL (0.11-0.59) H 07/25/22 Eosinophils # (Auto) 0.05 K/uL (0-0.50) 07/25/22 Basophils # (Auto) 0.02 K/uL (0-0.2) 07/25/22 Immature Granulocyte # (Auto) 0.03 K/uL (0.01-0.20) 3 Na 139 mmol/L (136-145) 07/26/22 K 3.6 mmol/L (3.5-5.1) 07/26/22 Cl 107 mmol/L (98-107) 07/26/22 CO2 24 mmol/L (21-32) 07/26/22 Anion Gap 8 (3-11) 07/26/22 BUN 7 mg/dl (6-23) 07/26/22 Creatinine 0.58 mg/dl (0.6-1.4) L 07/26/22 Estimated GFR ( Amer) > 150.0 ml/min 07/26/22 Estimated GFR (Non-Af Amer) 134.9 ml/min 07/26/22 BUN/Creatinine Ratio 12.1 (10-20) 07/26/22 Glu 67 mg/dl (70-99(Fasting)) L 07/26/22 Ca 8.2 mg/dl (8.6-10.3) L 07/26/22 Total Bilirubin 1.2 mg/dl (0.2-1.0) H 07/26/22 AST 67 U/L (13-39) H 07/26/22 ALT 106 U/L (7-52) H 07/26/22 Alkaline Phosphatase 54 U/L (34-104) 07/26/22 TP 6.1 gm/dl (6.0-8.3) 07/26/22 Albumin 3.8 gm/dl (3.4-5.0) 07/26/22 Globulin 2.3 gm/dl (2.5-4.0) L 07/26/22 Albumin/Globulin Ratio 1.7 (0.9-2) 07/26/22 Mg 2.0 mg/dl (1.7-2.4) 07/25/22 11:30 Calcium Level 8.2 mg/dl (8.6-10.3) L 07/26/22 06:19 Diagnostic Findings (Past 24 Hours) Chest X-Ray 07/25/22 12:08 SINGLE VIEW CHEST CLINICAL HISTORY: Change in mental status. FINDINGS: An AP, portable, upright chest radiograph is obtained. No prior studies are available for comparison at the time of dictation. The cardiomediastinal silhouette is unremarkable. The lungs and pleural spaces are clear. No pneumothorax is seen. The bony thorax is grossly intact. IMPRESSION: No active disease in the chest. ACT 112: Negative or not required by law. Electronically signed by: Prince Her M.D. 07/25/2022 1:[address] 07/25/22 12:08 CT SCAN OF THE BRAIN WITHOUT IV CONTRAST CLINICAL HISTORY: Change in mental status COMPARISON STUDY: No priors. TECHNIQUE: Unenhanced axial CT scan of the brain is performed from the vertex to the skull base. A dose lowering technique was utilized adhering to the principles of ALARA. CT DOSE: 614.27 mGy.cm FINDINGS: Brain parenchyma: The brain parenchyma is normal in appearance. There is no hemorrhage, mass effect, or evidence of acute territorial ischemia by CT criteria. Arriaza-white matter differentiation is preserved. No extra-axial fluid collection is seen. Ventricles, sulci, cisterns: Normal in configuration. Intracranial vasculature: The visualized intracranial vasculature at the skull base is normal in appearance. Calvarium: Unremarkable. Sinuses and mastoids: The visualized paranasal sinuses are clear. The mastoid air cells are well pneumatized. Orbits: The bony orbits are grossly intact. IMPRESSION: No acute intracranial abnormality. ACT 112: Negative or not required by law. Electronically signed by: Prince Her M.D. 07/25/2022 12:52 PM I & O Totals 24 Hours 07/25/22 07/26/22 07/27/22 06:59 06:59 06:59 Intake Total 3356.667 / 3356.667 Output Total 350 / 350 Balance 3006.667 / 3006.667 Cumulative 07/25/22 11:16 thru 07/26/22 06:37 Intake Total 3356.667 Output Total 350 Balance 3006.667 RT Ventilator Mngmt (Last Documented) Ventilator Ordered Settings Respiratory Rate 18 07/26/22 07:38 Ventilator - PT Measurements Respiratory Rate 18 Coding Level of Care Code 96573 IN/OBS CONSULT LVL 4,60M Diagnoses Altered mental status R41.82 Altered mental status type: unspecified Rhabdomyolysis M62.82 Rhabdomyolysis type: non-traumatic Alcohol withdrawal F10.939 (1) Altered mental status Altered mental status type: unspecified Qualified Code(s): R41.82 - Altered mental status, unspecified (2) Rhabdomyolysis Rhabdomyolysis type: non-traumatic Qualified Code(s): M62.82 - Rhabdomyolysis
[2022-07-26] MEDS: ENOXAPARIN INJ 40 MG/0.4 ML SYR SQ SCH (10:07)
[2022-07-26] MEDS: D5W AND LACTATED RINGERS 1,000 ML IV SCH ×2 (10:07→18:12)
[2022-07-26] MEDS: THIAMINE HCL 100 MG TAB PO SCH (20:45)
[2022-07-27] MEDS: D5W AND LACTATED RINGERS 1,000 ML IV SCH (03:09)
[2022-07-27 04:45] LABS: Hematocrit (blood only) 35.4 % (42.0-52.0); Hemoglobin 12.3 g/dl (14.0-18.0); Mean Corpuscular Hgb Conc 34.7 g/dL (32.0-36.0); Mean Corpuscular Volume 94.9 fL (80.0-100.0); Mean Platelet Volume 10.4 fL (9.4-12.4); Platelet Count 211 K/uL (130-400); RDW Coefficient of Variation 12.1 % (11.5-14.5); RDW Standard Deviation 42.1 fL (36.4-46.3); Red Blood Count 3.73 M/uL (4.70-6.10); White Blood Count 4.98 K/ul (4.8-10.8)
[2022-07-27 04:59] LABS: Alanine Aminotransferase 84 U/L (7-52); Albumin Globulin Ratio 1.6 (0.9-2); Albumin Level 3.8 gm/dl (3.4-5.0); Alkaline Phosphatase 57 U/L (34-104); Anion Gap 7 (3-11); Aspartate Aminotransferase 41 U/L (13-39); BUN Creatinine Ratio 5.2 (10-20); Blood Urea Nitrogen 3 mg/dl (6-23); Calcium 8.5 mg/dl (8.6-10.3); Carbon Dioxide 26 mmol/L (21-32); Chloride 104 mmol/L (98-107); Est GFR (African American) > 150.0 ml/min; Est GFR (Non-African American) 134.9 ml/min; Globulin 2.4 gm/dl (2.5-4.0); Glucose 99 mg/dl (70-99(Fasting)); Magnesium 1.9 mg/dl (1.7-2.4); Phosphorus 2.6 mg/dl (2.5-4.9); Potassium 3.3 mmol/L (3.5-5.1); Sodium 137 mmol/L (136-145); Total Protein 6.2 gm/dl (6.0-8.3)
[2022-07-27] MEDS: GABAPENTIN 600 MG TAB PO SCH (05:49)
[2022-07-27] MEDS ORDERED: POTASSIUM CHLORIDE CRTAB 20 MEQ TABCR PO STA (06:11)
--- NOTE | 2022-07-27 08:17 | Critical Care Progress Note ---
Date of Service July 27, 2022 Assessment & Plan (1) Altered mental status: (2) Rhabdomyolysis: (3) Alcohol withdrawal: Plan Impression: 31-year-old male with acute alcohol withdrawal resulting in altered mental status. He has been stable with initiation of gabapentin and only r equired 1 dose of Ativan overnight. Recommendations: 1. Acute alcohol withdrawal: Continue benzodiazepines and gabapentin. Will place on a low-dose of scheduled benzodiazepine and taper his gabapentin. Continue thiamine and folate. Given his hypertension and tachycardia, will add low-dose of clonidine which should be effective at both and may offer some central alpha antagonism. 2. Elevated CPK: Downtrending currently. No indication for continuing to follow 3. Mild anemia. No evidence of acute blood loss. Continue to follow currently. No indication for transfusion. 4. Increased AST and ALT now decreasing. No indication for continuing to follow. Exam is benign. 5. DVT prophylaxis will be initiated. Patient appears to be doing well clinically. No indication for continued ICU monitoring. He will be transferred back to the care of the hospitalist. Critical care services will sign off. As with questions or concerns Discussed with bedside ICU critical care nurse. Admission and Anticipated Discharge Date Admission Date: July 25, 2022 Subjective Patient seen and examined. EMR reviewed. Discussed with critical care nurse and with overnight JUAN DAVID. The patient is awake alert conversant this morning. He does not have any complaints. He denies chest pain palpitations. No auditory or visual hallucinations. He has been intermittently slightly tachycardic and hypertensive. He is tolerating a diet. No nausea vomiting or diarrhea. Review of Systems Review of Systems: All systems reviewed & are unremarkable except as noted in Subjective Physical Exam Constitutional: WD/WN, vitals as above Neck: trachea midline, no thyromegaly Respiratory: normal respiratory effort, lungs clear to auscultation Cardiovascular: RRR, no murmur, no edema Gastrointestinal (Abdomen): normal bowel sounds, soft, nontender, no hepatosplenomegaly Musculoskeletal: Extremities: extremities normal to inspection Skin: no rashes, warm and dry Lymphatic: no cervical lymphadenopathy Results & Data Results & Data Vital Signs (Past 12 Hours) Vital Signs Temp Pulse Resp BP Pulse Ox O2 Del Method O2 Del Method 07/27/22 07:40 Room Air 07/27/22 05:00 96 H 16 100 07/27/22 05:00 150/95 H 07/27/22 04:30 95 H 26 H 07/27/22 04:00 98 H 21 07/27/22 04:00 139/78 07/27/22 03:30 99 H 20 07/27/22 03:00 93 H 25 H 99 07/27/22 03:00 136/90 07/27/22 02:30 79 13 07/27/22 05:16 36.8 C 07/27/22 02:00 81 17 86 L 07/27/22 02:00 125/70 07/27/22 01:30 82 16 100 07/27/22 01:00 81 18 100 07/27/22 01:00 128/74 07/27/22 00:30 87 21 97 07/27/22 00:01 136/67 07/27/22 00:01 90 33 H 07/27/22 00:00 107 H 14 07/26/22 23:30 102 H 26 H 96 07/26/22 23:00 91 H 21 98 07/26/22 23:00 139/80 07/26/22 22:30 101 H 18 84 L 07/26/22 22:01 116 H 23 78 L 07/26/22 22:01 140/84 07/26/22 22:00 95 H 21 94 07/26/22 21:47 140/87 07/26/22 21:47 83 21 99 07/27/22 01:58 82 07/27/22 00:00 Room Air 07/27/22 00:40 37.1 C 07/26/22 21:30 86 21 07/26/22 21:00 100 H 21 97 07/26/22 21:00 134/82 07/26/22 20:30 91 H 22 99 07/26/22 21:49 37.2 C Critical Care Results & Data Vital Signs (Past 12 Hours) Vital Signs Temp Pulse Resp BP Pulse Ox O2 Del Method O2 Del Method 07/27/22 07:40 Room Air 07/27/22 05:00 96 H 16 100 07/27/22 05:00 150/95 H 07/27/22 04:30 95 H 26 H 07/27/22 04:00 98 H 21 07/27/22 04:00 139/78 07/27/22 03:30 99 H 20 07/27/22 03:00 93 H 25 H 99 07/27/22 03:00 136/90 07/27/22 02:30 79 13 07/27/22 05:16 36.8 C 07/27/22 02:00 81 17 86 L 07/27/22 02:00 125/70 07/27/22 01:30 82 16 100 07/27/22 01:00 81 18 100 07/27/22 01:00 128/74 07/27/22 00:30 87 21 97 07/27/22 00:01 136/67 07/27/22 00:01 90 33 H 07/27/22 00:00 107 H 14 07/26/22 23:30 102 H 26 H 96 07/26/22 23:00 91 H 21 98 07/26/22 23:00 139/80 07/26/22 22:30 101 H 18 84 L 07/26/22 22:01 116 H 23 78 L 07/26/22 22:01 140/84 07/26/22 22:00 95 H 21 94 07/26/22 21:47 140/87 07/26/22 21:47 83 21 99 07/27/22 01:58 82 07/27/22 00:00 Room Air 07/27/22 00:40 37.1 C 07/26/22 21:30 86 21 07/26/22 21:00 100 H 21 97 07/26/22 21:00 134/82 07/26/22 20:30 91 H 22 99 07/26/22 21:49 37.2 C Lab & Micro Results (Past 24 Hours) RBC 3.73 M/uL (4.70-6.10) L 07/27/22 WBC 4.98 K/ul (4.8-10.8) 07/27/22 Hgb 12.3 g/dl (14.0-18.0) L 07/27/22 Hct 35.4 % (42.0-52.0) L 07/27/22 MCV 94.9 fL (80.0-100.0) 07/27/22 MCH 33.0 pg (25.0-34.0) 07/27/22 MCHC 34.7 g/dL (32.0-36.0) 07/27/22 RDW Standard Deviation 42.1 fL (36.4-46.3) 07/27/22 RDW Coefficient of Variation 12.1 % (11.5-14.5) 07/27/22 Plt Count 211 K/uL (130-400) 07/27/22 MPV 10.4 fL (9.4-12.4) 07/27/22 Na 137 mmol/L (136-145) 07/27/22 K 3.3 mmol/L (3.5-5.1) L 07/27/22 Cl 104 mmol/L (98-107) 07/27/22 CO2 26 mmol/L (21-32) 07/27/22 Anion Gap 7 (3-11) 07/27/22 BUN 3 mg/dl (6-23) L 07/27/22 Creatinine 0.58 mg/dl (0.6-1.4) L 07/27/22 Estimated GFR ( Amer) > 150.0 ml/min 07/27/22 Estimated GFR (Non-Af Amer) 134.9 ml/min 07/27/22 BUN/Creatinine Ratio 5.2 (10-20) L 07/27/22 Glu 99 mg/dl (70-99(Fasting)) 07/27/22 Ca 8.5 mg/dl (8.6-10.3) L 07/27/22 Phosphorus Level 2.6 mg/dl (2.5-4.9) 07/27/22 Total Bilirubin 1.0 mg/dl (0.2-1.0) 07/27/22 AST 41 U/L (13-39) H 07/27/22 ALT 84 U/L (7-52) H 07/27/22 Alkaline Phosphatase 57 U/L (34-104) 07/27/22 TP 6.2 gm/dl (6.0-8.3) 07/27/22 Albumin 3.8 gm/dl (3.4-5.0) 07/27/22 Globulin 2.4 gm/dl (2.5-4.0) L 07/27/22 Albumin/Globulin Ratio 1.6 (0.9-2) 07/27/22 Mg 1.9 mg/dl (1.7-2.4) 07/27/22 04:15 Calcium Level 8.5 mg/dl (8.6-10.3) L 04/30/23 04:15 I & O Totals 24 Hours 07/26/22 07/27/22 07/28/22 06:59 06:59 06:59 Intake Total 3356.667 / 3356.667 4530 / 4530 Output Total 350 / 350 1921 / 1921 Balance 3006.667 / 3006.667 2609 / 2609 Cumulative 07/25/22 11:16 thru 07/27/22 06:24 Intake Total 7886.667 Output Total 2271 Balance 5615.667 RT Ventilator Mngmt (Last Documented) Ventilator Ordered Settings Respiratory Rate 16 07/27/22 05:00 Ventilator - PT Measurements Respiratory Rate 16 Coding Level of Care Code 26537 SUB INP/OBS CARE 2/35MIN Diagnoses Altered mental status R41.82 Altered mental status type: unspecified Rhabdomyolysis M62.82 Rhabdomyolysis type: non-traumatic Alcohol withdrawal F10.939 (1) Altered mental status Altered mental status type: unspecified Qualified Code(s): R41.82 - Altered mental status, unspecified (2) Rhabdomyolysis Rhabdomyolysis type: non-traumatic Qualified Code(s): M62.82 - Rhabdomyolysis
[2022-07-27] MEDS: cloNIDine HCL 0.1 MG TAB PO SCH (08:35)
[2022-07-27] MEDS: chlordiazePOXIDE HCl 5 MG CAP PO SCH (08:35)
[2022-07-27] MEDS: FOLIC ACID 1 MG TAB PO SCH (08:35)
[2022-07-27] MEDS: THIAMINE HCL 100 MG TAB PO SCH ×2 (08:36→19:49)
[2022-07-27] MEDS: ENOXAPARIN INJ 40 MG/0.4 ML SYR SQ SCH (08:36)
[2022-07-27] MEDS: MULTIVITAMIN TAB PO SCH (08:37)
--- NOTE | 2022-07-27 10:40 | Hospitalist Progress Note ---
Date of Service July 27, 2022 Assessment & Plan (1) Altered mental status: Plan: Patient is 31 y/o M without known PMH presented to ER from [facility] for AMS. At [facility] for 2 days. Noted AMS, hallucinations Suspect ETOH withdrawal. DDX: underlying pysch disorder, other medication withdrawal, possible other drug use not seen on drug screen CT head: No acute intracranial abnormality CXR: No acute infiltrate EtOH:<10 Drug screen:+ Marijuana In ER given Ativan and thiamine Alcohol withdrawal protocol with gabapentin, Ativan Thiamine, folic acid, multivitamin daily Patient was unable to take p.o. gabapentin initially Now on gabapentin libium and prn ativan Was combative, and received multiple doses of Ativan after admission Now pt more cooperative. Does not recollect events prior to coming to the hospital. He denies any unusual behavior. No more hallucinations or tremors. Monitor CBC, CMP (2) Rhabdomyolysis: Plan: Reported to be hitting hands and head off last CK: 2973, BUN: 15, Cr: 0.8 Received IVF CK trended down (3) Hypokalemia: Plan: K: 3.1. Magnesium: 2.0 Replace and monitor (4) Abnormal LFTs: Plan: T. bili: 1.7, AST: 118, ALT: 163, alk phos: 73. Lipase WNL No baseline labs to compare Denies any abdominal pain, nontender on exam AST, ALT trended down Cont. to monitor CMP in a.m. DVT Prophylaxis SCDs Full Code as per discussion with pt Is currently at [facility] immigration facility Admission and Anticipated Discharge Date Admission Date: July 25, 2022 Subjective Pt seen in follow up of altered mental status, etoh withdrawal, rhabdo Sitting up in bed in NAD , eating. He is awake, alert, oriented, answering mostly appropriately Does not remember exactly what happened prior to coming to the hospital, he denies any unusual behavior He is in restraints No fevers chills chest pain shortness of breath, no abdominal pain, no nausea vomiting, no tremor. No hallucinations. Review of Systems Review of Systems: All systems reviewed & are unremarkable except as noted in Subjective Physical Exam Physical Exam: General: WD/WN young M in no acute distress Head: normocephalic, atraumatic Eyes: PERRL, EOM's intact, conjunctiva non-injected, anicteric ENT: normal inspection external ears, nose, mucous membranes moist Neck: supple Lungs: clear, no respiratory distress, no wheezing/rhonchi/rales CV: regular rhythm no murmur, no pretibial edema Abd: normal BS, soft, non-tender Ext: no LE edema, moves extremities w/o difficulty Neuro: Awake, alert, oriented, speech fluent, moving all extremities, in rest raints Skin: warm, dry Results & Data Results & Data Vital Signs (Past 12 Hours) Vital Signs Temp Pulse Resp BP Pulse Ox Pulse Ox O2 Del Method 07/27/22 08:00 96 07/27/22 09:01 96 H 07/27/22 07:40 Room Air 07/27/22 05:00 96 H 16 100 07/27/22 05:00 150/95 H 07/27/22 04:30 95 H 26 H 07/27/22 04:00 98 H 21 07/27/22 04:00 139/78 07/27/22 03:30 99 H 20 07/27/22 03:00 93 H 25 H 99 07/27/22 03:00 136/90 07/27/22 02:30 79 13 07/27/22 05:16 36.8 C 07/27/22 02:00 81 17 86 L 07/27/22 02:00 125/70 07/27/22 01:30 82 16 100 07/27/22 01:00 81 18 100 07/27/22 01:00 128/74 07/27/22 00:30 87 21 97 07/27/22 00:01 136/67 07/27/22 00:01 90 33 H 07/27/22 00:00 107 H 14 07/26/22 23:30 102 H 26 H 96 07/26/22 23:00 91 H 21 98 07/26/22 23:00 139/80 07/27/22 01:58 82 07/27/22 00:00 07/27/22 00:40 37.1 C O2 Del Method 07/27/22 08:00 Room Air 07/27/22 09:01 07/27/22 07:40 07/27/22 05:00 07/27/22 05:00 07/27/22 04:30 07/27/22 04:00 07/27/22 04:00 07/27/22 03:30 07/27/22 03:00 07/27/22 03:00 07/27/22 02:30 07/27/22 05:16 07/27/22 02:00 07/27/22 02:00 07/27/22 01:30 07/27/22 01:00 07/27/22 01:00 07/27/22 00:30 07/27/22 00:01 07/27/22 00:01 07/27/22 00:00 07/26/22 23:30 07/26/22 23:00 07/26/22 23:00 07/27/22 01:58 07/27/22 00:00 Room Air 07/27/22 00:40 Laboratory Results 07/27/22 07/27/22 07/27/22 Range/Units 04:15 04:15 03:14 WBC 4.98 (4.8-10.8) K/ul RBC 3.73 L (4.70-6.10) M/uL Hgb 12.3 L (14.0-18.0) g/dl Hct 35.4 L (42.0-52.0) % MCV 94.9 (80.0-100.0) fL MCH 33.0 (25.0-34.0) pg MCHC 34.7 (32.0-36.0) g/dL RDW Std Deviation 42.1 (36.4-46.3) fL RDW Coeff of Natalia 12.1 (11.5-14.5) % Plt Count 211 (130-400) K/uL MPV 10.4 (9.4-12.4) fL Sodium 137 (136-145) mmol/L Potassium 3.3 L (3.5-5.1) mmol/L Chloride 104 (98-107) mmol/L Carbon Dioxide 26 (21-32) mmol/L Anion Gap 7 (3-11) BUN 3 L (6-23) mg/dl Creatinine 0.58 L (0.6-1.4) mg/dl Est Cr Clr Drug Dosing 189.0 ml/min Est GFR ( Amer) > 150.0 ml/min Est GFR (Non-Af Amer) 134.9 ml/min BUN/Creatinine Ratio 5.2 L (10-20) Glucose 99 (70-99(Fasting)) mg/dl POC Glucose 85 (70-99) mg/dl Calcium 8.5 L (8.6-10.3) mg/dl Phosphorus 2.6 (2.5-4.9) mg/dl Magnesium 1.9 (1.7-2.4) mg/dl Total Bilirubin 1.0 (0.2-1.0) mg/dl AST 41 H (13-39) U/L ALT 84 H (7-52) U/L Alkaline Phosphatase 57 (34-104) U/L Total Protein 6.2 (6.0-8.3) gm/dl Albumin 3.8 (3.4-5.0) gm/dl Globulin 2.4 L (2.5-4.0) gm/dl Albumin/Globulin Ratio 1.6 (0.9-2) Medications Administered Current Inpatient Medications Acetaminophen (Acetaminophen 325 Mg Tab) 650 mg PO Q4H PRN PRN Reason: Pain or Fever Stop: 08/24/22 18:08 Chlordiazepoxide HCl (Chlordiazepoxide Hcl 5 Mg Cap) 5 mg PO DAILY [facility] Stop: 08/26/22 08:59 Last Admin: 07/27/22 08:35 Dose: 5 mg Clonidine HCl (Clonidine Hcl 0.1 Mg Tab) 0.1 mg PO QAM [facility] Stop: 08/26/22 08:59 Last Admin: 07/27/22 08:35 Dose: 0.1 mg Enoxaparin Sodium (Enoxaparin Inj 40 Mg/0.4 Ml Syr) 40 mg SQ QAM [facility] Stop: 08/25/22 09:59 Last Admin: 07/27/22 08:36 Dose: 40 mg Folic Acid (Folic Acid 1 Mg Tab) 1 mg PO QAM [facility] Stop: 08/25/22 08:59 Last Admin: 07/27/22 08:35 Dose: 1 mg Gabapentin (Gabapentin 600 Mg Tab) 600 mg PO Q24H [facility] Stop: 07/29/22 06:01 Gabapentin (Gabapentin 600 Mg Tab) 600 mg PO Q12H [facility] Stop: 07/28/22 06:01 Lorazepam (Lorazepam 2 Mg/1 Ml Vial) 3 mg IV ONCE PRN; Protocol PRN Reason: EtOH Withdrawal AWSS Score 10+ Lorazepam (Lorazepam 2 Mg/1 Ml Vial) 2 mg IV UD PRN; Protocol PRN Reason: EtOH Withdrawal AWSS Score 8,9 Stop: 08/24/22 18:08 Last Admin: 07/26/22 05:32 Dose: 2 mg Lorazepam (Lorazepam 2 Mg/1 Ml Vial) 1 mg IV UD PRN; Protocol PRN Reason: EtOH Withdrawal AWSS Score 6,7 Stop: 08/24/22 18:08 Last Admin: 07/26/22 19:46 Dose: 1 mg Multivitamins (Multivitamin Tab) 1 tab PO QAM [facility] Stop: 08/25/22 08:59 Last Admin: 07/27/22 08:37 Dose: 1 tab Ondansetron HCl (Ondansetron Inj 2 Mg/Ml 2 Ml Vial) 4 mg IV Q6H PRN PRN Reason: Nausea Stop: 08/24/22 18:08 Polyethylene Glycol (Polyethylene (Miralax) 17 Gm Pack) 17 gm PO DAILY PRN PRN Reason: Constipation Stop: 08/24/22 18:08 Thiamine HCl (Thiamine Hcl 100 Mg Tab) 200 mg PO BID [facility] Stop: 08/25/22 20:59 Last Admin: 07/27/22 08:36 Dose: 200 mg (1) Altered mental status Altered mental status type: unspecified Qualified Code(s): R41.82 - Altered mental status, unspecified (2) Rhabdomyolysis Rhabdomyolysis type: non-traumatic Qualified Code(s): M62.82 - Rhabdomyolysis
[2022-07-27] MEDS: ACETAMINOPHEN 325 MG TAB PO PRN (19:49)
[2022-07-28 06:43] LABS: Hematocrit (blood only) 38.2 % (42.0-52.0); Hemoglobin 13.2 g/dl (14.0-18.0); Mean Corpuscular Hemoglobin 33.4 pg (25.0-34.0); Mean Corpuscular Hgb Conc 34.6 g/dL (32.0-36.0); Mean Corpuscular Volume 96.7 fL (80.0-100.0); Mean Platelet Volume 10.2 fL (9.4-12.4); Platelet Count 297 K/uL (130-400); RDW Coefficient of Variation 12.1 % (11.5-14.5); RDW Standard Deviation 43.1 fL (36.4-46.3); Red Blood Count 3.95 M/uL (4.70-6.10); White Blood Count 4.41 K/ul (4.8-10.8)
[2022-07-28 06:59] LABS: BUN Creatinine Ratio 8.2 (10-20); Calcium 8.9 mg/dl (8.6-10.3); Creatinine Clr Calc Pharmacy 149.3 ml/min; Est GFR (African American) 142.2 ml/min; Est GFR (Non-African American) 122.7 ml/min; Magnesium 2.2 mg/dl (1.7-2.4); Phosphorus 3.9 mg/dl (2.5-4.9); Potassium 3.8 mmol/L (3.5-5.1)
[2022-07-28] MEDS: GABAPENTIN 600 MG TAB PO SCH ×2 (07:44→07:45)
--- NOTE | 2022-07-28 07:54 | Hospitalist Progress Note ---
Date of Service July 28, 2022 Assessment & Plan (1) Altered mental status: Plan: Patient is 31 y/o M without known PMH presented to ER from [facility] immigration [place] for [place]MS. At [facility] for 2 days. Noted AMS, hallucinations Suspect ETOH withdrawal. DDX: underlying pysch disorder, other medication withdrawal, possible other drug use not seen on drug screen CT head: No acute intracranial abnormality CXR: No acute infiltrate EtOH:<10 Drug screen:+ Marijuana In ER given Ativan and thiamine Alcohol withdrawal protocol with gabapentin, Ativan Thiamine, folic acid, multivitamin daily Patient was unable to take p.o. gabapentin initially Now on gabapentin libium and prn ativan Was combative, and received multiple doses of Ativan after admission Now pt more cooperative. Does not recall events prior to coming to the hospital. He denies any unusual behavior. No more hallucinations or tremors. Psychiatry also consulted for further eval -No evidence to suggest need for any current psychiatric medications -Agree with consensus that his confusion likely resulted from complicated alcohol withdrawal, mental status is now significantly improved -If future psychiatric symptoms occur, he can be evaluated by providers through the [facility] system (2) Rhabdomyolysis: Plan: Reported to be hitting hands and head off last CK: 2973, BUN: 15, Cr: 0.8 Received IVF CK trended down (3) Hypokalemia: Plan: K: 3.1. Magnesium: 2.0 Replace and monitor (4) Abnormal LFTs: Plan: T. bili: 1.7, AST: 118, ALT: 163, alk phos: 73. Lipase WNL No baseline labs to compare Denies any abdominal pain, nontender on exam AST, ALT trended down Cont. to monitor CMP in a.m. DVT Prophylaxis SCDs Full Code as per discussion with pt Is currently at [facility] immigration facility Admission and Anticipated Discharge Date Admission Date: July 25, 2022 Subjective Pt seen in follow up of altered mental status, etoh withdrawal, rhabdo Sitting up in bed in [facility]. He is awake, alert, oriented, answering most questions appropriately He is in restraints Reports some alcohol use - he himself denies significant alcohol use, reports his behavior was secondary to "the situation" Denies hallucinations, and denies he said anything odd/ having hallucinations on admission No fevers chills chest pain shortness of breath, no abdominal pain, no nausea vomiting, no tremor. No hallucinations. Psychiatry also consulted for evaluation. Review of Systems Review of Systems: All systems reviewed & are unremarkable except as noted in Subjective Physical Exam Physical Exam: General: WD/WN young M in no acute distress Head: normocephalic, atraumatic Eyes: PERRL, EOM's intact, conjunctiva non-injected, anicteric ENT: normal inspection external ears, nose, mucous membranes moist Neck: supple Lungs: clear, no respiratory distress, no wheezing/rhonchi/rales CV: regular rhythm no murmur, no pretibial edema Abd: normal BS, soft, non-tender Ext: no LE edema, moves extremities w/o difficulty Neuro: Awake, alert, oriented, speech fluent, moving all extremities, in restraints Skin: warm, dry Results & Data Results & Data Vital Signs (Past 12 Hours) Vital Signs Temp Pulse Pulse Resp BP BP Pulse Ox 07/28/22 07:27 36.7 C 112 H 17 131/72 98 07/28/22 02:21 36.6 C 100 H 18 147/72 H 100 07/27/22 22:15 82 07/28/22 00:00 07/27/22 23:00 36.8 C 89 18 127/79 100 O2 Del Method O2 Del Method 07/28/22 07:27 Room Air 07/28/22 02:21 Room Air 07/27/22 22:15 07/28/22 00:00 Room Air 07/27/22 23:00 Room Air Laboratory Results 07/28/22 07/28/22 Range/Units 06:12 06:12 WBC 4.41 L (4.8-10.8) K/ul RBC 3.95 L (4.70-6.10) M/uL Hgb 13.2 L (14.0-18.0) g/dl Hct 38.2 L (42.0-52.0) % MCV 96.7 (80.0-100.0) fL MCH 33.4 (25.0-34.0) pg MCHC 34.6 (32.0-36.0) g/dL RDW Std Deviation 43.1 (36.4-46.3) fL RDW Coeff of Natalia 12.1 (11.5-14.5) % Plt Count 297 (130-400) K/uL MPV 10.2 (9.4-12.4) fL Sodium 138 (136-145) mmol/L Potassium 3.8 (3.5-5.1) mmol/L Chloride 103 (98-107) mmol/L Carbon Dioxide 26 (21-32) mmol/L Anion Gap 9 (3-11) BUN 6 (6-23) mg/dl Creatinine 0.73 (0.6-1.4) mg/dl Est Cr Clr Drug Dosing 149.3 ml/min Est GFR ( Amer) 142.2 ml/min Est GFR (Non-Af Amer) 122.7 ml/min BUN/Creatinine Ratio 8.2 L (10-20) Glucose 83 (70-99(Fasting)) mg/dl Calcium 8.9 (8.6-10.3) mg/dl Phosphorus 3.9 D (2.5-4.9) mg/dl Magnesium 2.2 (1.7-2.4) mg/dl Medications Administered Current Inpatient Medications Acetaminophen (Acetaminophen 325 Mg Tab) 650 mg PO Q4H PRN PRN Reason: Pain or Fever Stop: 08/24/22 18:08 Last Admin: 07/27/22 19:49 Dose: 650 mg Chlordiazepoxide HCl (Chlordiazepoxide Hcl 5 Mg Cap) 5 mg PO DAILY [facility] Stop: 08/26/22 08:59 Last Admin: 07/27/22 08:35 Dose: 5 mg Clonidine HCl (Clonidine Hcl 0.1 Mg Tab) 0.1 mg PO QAM [facility] Stop: 08/26/22 08:59 Last Admin: 07/27/22 08:35 Dose: 0.1 mg Enoxaparin Sodium (Enoxaparin Inj 40 Mg/0.4 Ml Syr) 40 mg SQ QAM [facility] Stop: 08/25/22 09:59 Last Admin: 07/27/22 08:36 Dose: 40 mg Folic Acid (Folic Acid 1 Mg Tab) 1 mg PO QAM [facility] Stop: 08/25/22 08:59 Last Admin: 07/27/22 08:35 Dose: 1 mg Gabapentin (Gabapentin 600 Mg Tab) 600 mg PO Q24H [facility] Stop: 07/29/22 06:01 Lorazepam (Lorazepam 2 Mg/1 Ml Vial) 3 mg IV ONCE PRN; Protocol PRN Reason: EtOH Withdrawal AWSS Score 10+ Lorazepam (Lorazepam 2 Mg/1 Ml Vial) 2 mg IV UD PRN; Protocol PRN Reason: EtOH Withdrawal AWSS Score 8,9 Stop: 08/24/22 18:08 Last Admin: 07/26/22 05:32 Dose: 2 mg Lorazepam (Lorazepam 2 Mg/1 Ml Vial) 1 mg IV UD PRN; Protocol PRN Reason: EtOH Withdrawal AWSS Score 6,7 Stop: 08/24/22 18:08 Last Admin: 07/26/22 19:46 Dose: 1 mg Multivitamins (Multivitamin Tab) 1 tab PO QAM [facility] Stop: 08/25/22 08:59 Last Admin: 07/27/22 08:37 Dose: 1 tab Ondansetron HCl (Ondansetron Inj 2 Mg/Ml 2 Ml Vial) 4 mg IV Q6H PRN PRN Reason: Nausea Stop: 08/24/22 18:08 Polyethylene Glycol (Polyethylene (Miralax) 17 Gm Pack) 17 gm PO DAILY PRN PRN Reason: Constipation Stop: 08/24/22 18:08 Thiamine HCl (Thiamine Hcl 100 Mg Tab) 200 mg PO BID [facility] Stop: 08/25/22 20:59 Last Admin: 07/27/22 19:49 Dose: 200 mg (1) Altered mental status Altered mental status type: unspecified Qualified Code(s): R41.82 - Altered mental status, unspecified (2) Rhabdomyolysis Rhabdomyolysis type: non-traumatic Qualified Code(s): M62.82 - Rhabdomyolysis
[2022-07-28] MEDS: cloNIDine HCL 0.1 MG TAB PO SCH (09:33)
[2022-07-28] MEDS: MULTIVITAMIN TAB PO SCH (09:33)
[2022-07-28] MEDS: THIAMINE HCL 100 MG TAB PO SCH ×2 (09:33→19:51)
[2022-07-28] MEDS: FOLIC ACID 1 MG TAB PO SCH (09:33)
[2022-07-28] MEDS: chlordiazePOXIDE HCl 5 MG CAP PO SCH (09:33)
[2022-07-28] MEDS: ENOXAPARIN INJ 40 MG/0.4 ML SYR SQ SCH (09:33)
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
[2022-07-28] MEDS: ACETAMINOPHEN 325 MG TAB PO PRN (19:51)
[2022-07-29] MEDS ORDERED: GABAPENTIN 600 MG TAB PO SCH (06:00)
[2022-07-29 06:50] LABS: Hematocrit (blood only) 40.2 % (42.0-52.0); Mean Corpuscular Hemoglobin 33.2 pg (25.0-34.0); Mean Corpuscular Hgb Conc 34.8 g/dL (32.0-36.0); Mean Corpuscular Volume 95.3 fL (80.0-100.0); Mean Platelet Volume 9.9 fL (9.4-12.4); Platelet Count 352 K/uL (130-400); RDW Coefficient of Variation 12.1 % (11.5-14.5); RDW Standard Deviation 42.4 fL (36.4-46.3); Red Blood Count 4.22 M/uL (4.70-6.10); White Blood Count 4.99 K/ul (4.8-10.8)
[2022-07-29 07:04] LABS: Albumin Globulin Ratio 1.7 (0.9-2); Albumin Level 4.5 gm/dl (3.4-5.0); BUN Creatinine Ratio 9.8 (10-20); Bilirubin,Total 0.6 mg/dl (0.2-1.0); Calcium 8.9 mg/dl (8.6-10.3); Creatinine Clr Calc Pharmacy 129.8 ml/min; Est GFR (African American) 135.6 ml/min; Globulin 2.6 gm/dl (2.5-4.0); Magnesium 2.2 mg/dl (1.7-2.4); Phosphorus 4.1 mg/dl (2.5-4.9); Potassium 3.9 mmol/L (3.5-5.1); Total Protein 7.1 gm/dl (6.0-8.3)
[2022-07-29] MEDS: cloNIDine HCL 0.1 MG TAB PO SCH (09:21)
[2022-07-29] MEDS: FOLIC ACID 1 MG TAB PO SCH (09:22)
[2022-07-29] MEDS: ENOXAPARIN INJ 40 MG/0.4 ML SYR SQ SCH (09:22)
[2022-07-29] MEDS: MULTIVITAMIN TAB PO SCH (09:22)
[2022-07-29] MEDS: chlordiazePOXIDE HCl 5 MG CAP PO SCH (09:26)
[2022-07-29] MEDS: THIAMINE HCL 100 MG TAB PO SCH (09:26)
--- NOTE | 2022-07-29 15:43 | Discharge Summary ---
Date of Service July 29, 2022 Admission HPI Per Admitting Provider Patient is 31 y/o M without known PMH presented to ER from [facility] for AMS. Limited history obtained from patient secondary to patient's current confusion. It is reported patient arrived at [facility] 2 days ago. It is reported yesterday he had noted confusion. He was agitated and hitting his head and hands on the last. He had noted diaphoresis. Reported he was hallucinating and reporting that his mother was lying down on the floor in his cell. Seen by psych there. There was question if patient had underlying mental health history. It is reported that patient's had called facility and reported that patient drinks alcohol. It is unclear how much patient drinks or when his last ETOH intake was. There is question if last drink was 5 days ago. He was referred to ER for further evaluation today. Currently patient with confusion and history is unreliable. He has varied answers for how much he drinks and how often. He states he drinks beer. Onetime he says he drinks 4 drinks a couple times a week another time he states he drinks more often. He reports he smokes cigarettes 1.5 packs/day. Also states smokes marijuana. He reports he last used 5 days ago. Patient reports that he is currently in an apartment with his brother and is confused to place. He states year is 2022, thinks it is August 16. He states he remembers being at [facility] yesterday but "didn't feel like himself". Currently patient reports feels well after receiving medication in ER. Patient states that he does not take routine medications, again however this is unclear. No fever reported from facility. Patient doesn't think he has had any N/V/D, SOB, CP, abdominal pain, extremity edema, urinary symptoms. He is unable to tell me if he has any other further medical problems, history of surgeries or family history. Admission Exam Per Admitting Provider General: no acute distress currently, WDWN Head: normocephalic, atraumatic Eyes: PERRL, EOM's intact, conjunctiva non-injected, anicteric ENT: normal inspection external ears, nose, mucous membranes moist Neck: supple, trachea midline Lungs: clear, no respiratory distress, no wheezing/rhonchi/rales CV: Tachycardic, rate 106, regular rhythm no murmur, no pretibial edema Abd: normal BS, soft, non-tender Ext: no cyanosis, no calf tenderness Neuro: Alert, oriented to person. Thinks he is in his apartment with his brother currently. Knows the year is 2022, incorrect month and date, no focal deficits noted, currently is calm and cooperative. No signs of current hallucinations Skin: warm, dry Principal Diagnosis Altered mental status, secondary to alcohol withdrawal, and possible Warnicke encephalopathy Discharge Exam General: WD/WN young M in no acute distress Head: normocephalic, atraumatic Eyes: PERRL, EOM's intact, conjunctiva non-injected, anicteric ENT: normal inspection external ears, nose, mucous membranes moist Neck: supple Lungs: clear, no respiratory distress, no wheezing/rhonchi/rales CV: regular rhythm no murmur, no pretibial edema Abd: normal BS, soft, non-tender Ext: no LE edema, moves extremities w/o difficulty Neuro: Awake, alert, oriented, speech fluent, moving all extremities, in restraints Psych: calm, cooperative but likely confabulating Skin: warm, dry Discharge Data Allergies Allergy/AdvReac Type Severity Reaction Status Date / Time No Known Allergies Allergy Unverified 07/25/22 15:03 Consultations 07/25/22 14:26 ED Decision to Admit Stat 07/26/22 07:48 Consult [facility] [facility] [employer] Routine 07/28/22 09:41 Consult Psychiatry Routine Ordered Studies 07/25/22 12:08 CT head/brain wo con Stat FINDINGS: Brain parenchyma: The brain parenchyma is normal in appearance. There is no hemorrhage, mass effect, or evidence of acute territorial ischemia by CT criteria. Arriaza-white matter differentiation is preserved. No extra-axial fluid collection is seen. Ventricles, sulci, cisterns: Normal in configuration. Intracranial vasculature: The visualized intracranial vasculature at the skull base is normal in appearance. Calvarium: Unremarkable. Sinuses and mastoids: The visualized paranasal sinuses are clear. The mastoid air cells are well pneumatized. Orbits: The bony orbits are grossly intact. IMPRESSION: No acute intracranial abnormality. Hospital Course (1) Altered mental status: Patient is 31 y/o M without known PMH presented to ER from [facility] for AMS. At [facility] for 2 days. Noted AMS, hallucinations Suspect ETOH withdrawal. DDX: underlying pysch disorder, other medication withdrawal, possible other drug use not seen on drug screen CT head: No acute intracranial abnormality CXR: No acute infiltrate EtOH:<10 Drug screen:+ Marijuana In ER given Ativan and thiamine Alcohol withdrawal protocol with gabapentin, Ativan Thiamine, folic acid, multivitamin daily Patient was unable to take p.o. gabapentin initially Now finished gabapentin taper, continue librium for next 3 days Was combative, and received multiple doses of Ativan after admission Now pt cooperative. Initially does not recall events prior to coming to the hospital. He denies any unusual behavior. Now seems to be confabulating ? Wernicke No more hallucinations or tremors. Cont. librium as above, cont. high dose thiamine - Discussed w/ Dr. Chaney ([facility] facility physician) Psychiatry also consulted for further eval -No evidence to suggest need for any current psychiatric medications -Agree with consensus that his confusion likely resulted from complicated alcohol withdrawal, mental status is now significantly improved -If future psychiatric symptoms occur, he can be evaluated by providers through the [facility] system (2) Rhabdomyolysis: Reported to be hitting hands and head off last CK: 2973, BUN: 15, Cr: 0.8 Received IVF CK trended down (3) Hypokalemia: K: 3.1. Magnesium: 2.0 Replace and monitor (4) Abnormal LFTs: T. bili: 1.7, AST: 118, ALT: 163, alk phos: 73. Lipase WNL No baseline labs to compare Denies any abdominal pain, nontender on exam AST, ALT trended down DVT Prophylaxis SCDs Full Code as per discussion with pt Is currently at [facility] facility Total Time Total Time Spent Total Time Spent (In Minutes): 40 Discharge Plan Discharge Items [facility]position[facility] Reason For Visit: AMS Discharge Diagnosis: Altered mental status, secondary to alcohol withdrawal, and possible Warnicke encephalopathy Activity: Per Instructions section Non-emergency contact: Primary Care Provider and Psychiatrist Call non-emergency contact if: you have any medication questions and your symptoms worsen Follow-up/Referrals: Jamie Hughes DO [Primary Care Provider] - Diet: Regular Addtl Attending Provider Instructions: Follow-up with your primary care physician, and psychiatrist. Continue taking thiamine 200 mg twice a day. Take multivitamin, and folic acid. Continue taking Librium for next 3 days. It is crucial that you completely abstain from alcohol. Pending Studies at Discharge: No Stand-Alone Forms: My [facility] Skilled Items Patient informed of condition?: Yes Discharge Level of Care: Other Communicable Disease: No Discharge Prognosis: Other Lines: None Urinary Catheter: No Medications and DC Order Prescriptions: New thiamine HCl (vitamin B1) 100 mg Tablet 200 mg PO BID 10 Days Qty: 40 0RF multivitamin with folic acid [Daily-Santy (with folic acid)] 400 mcg Tablet 1 tab PO QAM Qty: 30 0RF folic acid 1 mg Tablet 1 mg PO QAM Qty: 30 0RF chlordiazepoxide HCl 5 mg Capsule 5 mg PO DAILY Qty: 3 0RF Discharge Orders: Discharge Order (Routine); Ordered 07/29/22 Ordered By: Jm Michelle Admission Data Admit Date/Time: 07/25/22 14:52 Attending Provider: Jm Michelle Admit Provider: Estrada Chaney Primary Care Provider: Jamie Hughes Other Providers: Estrada Chaney ; Leopoldo Perez ; Berna Nunes ; Nickie Kendrick ; Art Chan
[2022-07-29 23:27] LABS: Marijuana Quant, GCMS Urine 378 ng/mL (<5)
== END 2022-07-29 17:50 | DRG 897 ==
LOC: ED 11:31 → 2S 14:52 → SUATTDRO 14:52 → 2S 17:19 → 1E 07-26 08:13 → 2S 07-27 14:45